=== PATIENT | female | born 1995 | race Caucasian/White ===

== ENCOUNTER 2022-06-05 07:02 | Emergency (ER) | payer MEDICAID, SELFPAY ==
[2022-06-05 07:09] VITALS: BP 146/89; PULSE 91; RESP 18; TEMP 37; O2SAT 96; BMI 49.0
--- NOTE | 2022-06-05 07:18 | CRLHL7_ITS ---
For Patients: As a result of the Century Cures Act, medical imaging exams and procedure reports are released immediately into your electronic medical record. You may view this report before your referring provider. If you have questions, please contact your health care provider. Indication: Right foot pain. Technique: Right foot 2 views. Comparison: None. Findings: No acute fracture or dislocation. Joint spaces are preserved. Bipartite medial sesamoid bone. Soft tissues are unremarkable. Impression: No acute findings. Dictated by Antonia Cruz MD @ 06/05/2022 8:05:13 AM (Electronically Signed)
--- NOTE | 2022-06-05 07:18 | CRLHL7_ITS ---
For Patients: As a result of the Century Cures Act, medical imaging exams and procedure reports are released immediately into your electronic medical record. You may view this report before your referring provider. If you have questions, please contact your health care provider. Indication: Right foot and ankle pain. Technique: Right ankle 2 views. Comparison: None. Findings: No acute fracture or dislocation. The talar dome appears intact. No ankle joint effusion. Soft tissues are unremarkable. Impression: No acute findings. Dictated by Antonia Cruz MD @ 06/05/2022 8:06:52 AM (Electronically Signed)
--- NOTE | 2022-06-05 07:23 | ED.LOWEXIN ---
HPI - Extremity Injury (Lower) General Time Seen by Provider: 07:20 Date Seen: 06/05/22 Chief Complaint: Extremity Pain/Injury, Lower Stated Complaint: Right ankle pain Time Seen by Provider: 06/05/22 07:09 Source: patient and RN notes reviewed Mode of arrival: ambulatory Limitations: no limitations History of Present Illness HPI Narrative: The patient is a very pleasant 27-year-old female denying who comes to the emergency room with complaints of right ankle pain. Patient notes that she was playing volleyball last night does not remember the exact moment in which she hurt her ankle. 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 She shows the pain to be in the medial aspect of her ankle and over the medial aspect of her upper foot. She has not noticed any bruising. She has not had pain in this area before. MD complaint: ankle injury and foot injury Onset (ago): hour(s) Related Data Home Medications Medication Instructions Recorded Confirmed No Known Home Medications 06/05/22 06/05/22 Allergies Allergy/AdvReac Type Severity Reaction Status Date / Time azithromycin [From Zithromax] Allergy Severe Hives Verified 06/05/22 07:13 bacitracin Allergy Intermediate hives Verified 06/05/22 07:13 [From Neosporin ([id number])] neomycin Allergy Intermediate hives Verified 06/05/22 07:13 [From Neosporin (aky-ndt-gqwel)] polymyxin B Allergy Intermediate hives Verified 06/05/22 07:13 [From Neosporin (ucd-pkz-bvfuo)] cephalexin [From Keflex] AdvReac Intermediate Rash Verified 06/05/22 07:13 codeine AdvReac Intermediate Rash Verified 06/05/22 07:12 Review of Systems Narrative: Patient denies any other injuries, numbness or tingling, easily broken bones. [facility] Medical History (Updated 06/05/22 @ 07:51 by Frannie eSrna MD) Endometriosis PCOS (polycystic ovarian syndrome) Social History Smoking Status: Current some day smoker What tobacco products do you use: cigarettes Do you use any of these nicotine containing products: None Second hand tobacco smoke exposure: No How often do you have a drink containing alcohol: never How often do you have six or more drinks on one occasion: Never AUDIT-C Alcohol total score: 0 Non-prescribed substance use: denies use service: No Exam Narrative: Exam Narrative: Past medical history: Patient states she is healthy Family history: Patient states her dad has had stents placed and is a diabetic Social history: Patient admits to smoking socially. Alcohol use is none she. Patient states she quit 4 years ago. 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. Const: Vital Signs, click to edit/add: Vital Signs - 24 hr 06/05/22 07:09 Temperature 98.6 F Pulse Rate [Right Pulse Oximeter] 91 Respiratory Rate 18 Blood Pressure [Ri ght Upper Arm] 146/89 H Pulse Oximetry 96 Documenting provider has reviewed patient's vital signs: yes Common normals: no apparent distress and oriented x3 Extremity: Other: Examination of the right foot shows noted discoloration. Patient has tenderness over the navicular and 1st metatarsal on the medial aspect. Patient also has lesser intense discomfort with palpation over the inferior aspect of the medial malleolus. Neuro: Common normals: oriented x3 Course Course Hospital Course: Differential diagnosis does include fracture, stress fracture, ligamental inflammation. X-ray of the foot and of the ankle currently being ordered. Vital Signs Vital signs: Initial Vital Signs Temperature 98.6 F 06/05/22 07:09 Temperature Source Tympanic 06/05/22 07:09 Pulse Rate 91 06/05/22 07:09 Respiratory Rate 18 06/05/22 07:09 Blood Pressure 146/89 H 06/05/22 07:09 Blood Pressure Mean 108 06/05/22 07:09 Blood Pressure Position Sitting 06/05/22 07:09 Pulse Oximetry 96 06/05/22 07:09 Vital Signs Temperature 98.6 F 06/05/22 07:09 Pulse Rate 91 06/05/22 07:09 Respiratory Rate 18 06/05/22 07:09 Blood Pressure 146/89 H 06/05/22 07:09 Pulse Oximetry 96 06/05/22 07:09 Temperature 98.6 F 06/05/22 07:09 Pulse Rate 91 06/05/22 07:09 Respiratory Rate 18 06/05/22 07:09 Blood Pressure 146/89 H 06/05/22 07:09 Pulse Oximetry 96 06/05/22 07:09 MDM - Extremity Injury (Lower) MDM Narrative Medical decision making narrative: 1. Right ankle strain-no evidence of fracture. At this time allow patient to today she return. Will wrap her ankle and foot an Chapo wrap also provide her stirrup. If she has not improvement she will need to be seen by Orthopedics. I would recommend icing at least a few times daily. Ibuprofen or Tylenol may be used for discomfort. 2. Disposition-home. Imaging Data ankle and foot xray: Attestation: I have reviewed the pertinent imaging results. My impression: No evidence of fracture. Radiologist's impression: No evidence of fracture or acute injury. Discharge Plan Discharge Clinical Impression: Ankle sprain and strain Patient Disposition: Home, Self-Care Condition: Improved Additional Instructions: Chapo wrap or splint as needed. Ice to area few times a day. Wear good supportive shoes. Follow up with Orthopedics or your primary clinic if not improving. Ibuprofen or Tylenol may be used for pain. Prescriptions: No Action No Known Home Medications 0RF Stand Alone Forms: [employer] Info Instructions
--- NOTE | 2022-06-05 08:24 | ED.NURSE ---
Patient's right ankle wrapped in LAURA wrap and gelsplint brace. Patient tolerating well. Understands can ice with brace, continue to elevate and use tylenol or ibuprofen as needed.
== END 2022-06-05 08:24 | disposition home or self-care (01) ==
PROVIDERS: Emergency Provider Family Medicine
DX: S93.401A Sprain of unspecified ligament of right ankle, initial encounter (principal)
CPT/HCPCS: 73600; 73620; 99282; 99283

== ENCOUNTER 2023-02-06 18:47 | Emergency (ER) | payer MEDICAID, SELFPAY ==
[2023-02-06 18:51] VITALS: BP 171/110; PULSE 98; RESP 20; TEMP 36.5; O2SAT 98; BMI 48.7
--- NOTE | 2023-02-06 19:42 | ED.UPPEXIN ---
HPI - Extremity Injury (Upper) General Chief Complaint: Extremity Pain/Injury, Upper Stated Complaint: L Shoulder Pain Time Seen by Provider: 02/06/23 19:02 History of Present Illness HPI narrative: This 27-year-old female comes in with left shoulder pain from an injury that occurred about 3 days ago. She states that she slipped getting out of the shower and fell forward onto her art stretched hands. She has developed more severe shoulder pain along these few days. She did present to [facility] facility for evaluation of this injury. An x-ray of her left shoulder was done along with other labs and imaging. These returned with normal findings. She states she received a intramuscular injection of Toradol and a prescription for a muscle relaxant. She reports that her left shoulder pain is become decidedly worse since then such that she is not able to sleep at night. She has decreased range of motion due to pain but there is no sign of deformity or significant swelling. Related Data Home Medications Medication Instructions Recorded Confirmed No Known Home Medications 06/05/22 06/05/22 Allergies Allergy/AdvReac Type Severity Reaction Status Date / Time azithromycin [From Zithromax] Allergy Severe Hives Verified 02/06/23 18:54 bacitracin Allergy Intermediate hives Verified 02/06/23 18:54 [From Neosporin ([id number]-jmnji)] neomycin Allergy Intermediate hives Verified 02/06/23 18:54 [From Neosporin (lld-tdu-lletf)] polymyxin B Allergy Intermediate hives Verified 02/06/23 18:54 [From Neosporin (oso-xwv-lhkfo)] cephalexin [From Keflex] AdvReac Intermediate Rash Verified 02/06/23 18:54 codeine AdvReac Intermediate Rash Verified 02/06/23 18:54 Review of Systems Status of ROS: Reports: 10 or more systems reviewed and unremarkable except as noted in History and below Narrative: Constitutional: No fevers, no weight gain or loss. Eyes: No discharge. No vision changes. HENT: No congestion, no sore throat, no ear pain. Cardiovascular: No chest pain, no palpitations. Respiratory: No shortness of breath, no wheezes, no cough. Gastrointestinal: No abdominal pain, no vomiting, no diarrhea. Genitourinary: No dysuria, no hematuria. Musculoskeletal: Left shoulder pain due to an injury with associated decreased range of motion. Skin: No rashes, no pruritis. Neurological: No dizziness, weakness, sensory change, speech change. Endo/Heme/Allergies: No bruising or bleeding. No polydipsia. Pysch: no suicidality, no anxiety, no insomnia. All other systems reviewed and are negative. [facility] Medical History (Updated 02/06/23 @ 19:48 by Amari Young MD) Endometriosis PCOS (polycystic ovarian syndrome) Social History Smoking Status: Current some day smoker What tobacco products do you use: cigarettes Do you use any of these nicotine containing products: None Second hand tobacco smoke exposure: No How often do you have a drink containing alcohol: never How often do you have six or more drinks on one occasion: Never AUDIT-C Alcohol total score: 0 Non-prescribed substance use: denies use service: No Exam Narrative: Exam Narrative: Constitutional: Well-developed, well-nourished, no acute distress. HEENT: Normocephalic, atraumatic. Neck: Normal range of motion. Nontender. Supple. Heart: Regular. No murmurs. Normal rate. Intact distal pulses. Lungs: Clear to auscultation. No chest discomfort. No wheezes, rhonchi, or rales. Abdomen: Normal bowel sounds. Nontender. No rebound tenderness. Genitalia: Deferred. Back: No midline tenderness. Normal range of motion. Extremities: This patient has diffuse pain in her left shoulder. There is no sign of swelling or deformity. She does not care to do any kind of range of motion because of pain. It is difficult to do a good shoulder exam because of this. Skin: Intact. No rash. Warm. No erythema or pallor. Neurologic: No altered sensation. No weakness. Alert and oriented. Psychiatric: No suicidality. No anxiety or depression. No insomnia. Nursing notes and vitals signs are reviewed. Const: Vital Signs, click to edit/add: Vital Signs - 24 hr 02/06/23 18:51 Temperature 97.7 F Pulse Rate [Right Pulse Oximeter] 98 Respiratory Rate 20 Blood Pressure [Ri ght Upper Arm] 171/110 H Pulse Oximetry 98 Oxygen Delivery Me thod Room Air Course Vital Signs Vital signs: Initial Vital Signs Temperature 97.7 F 02/06/23 18:51 Temperature Source Temporal Artery Scan 02/06/23 18:51 Pulse Rate 98 02/06/23 18:51 Pulse Rhythm 02/06/23 18:51 Pulse Strength 3+ Normal 02/06/23 18:51 Respiratory Rate 20 02/06/23 18:51 Blood Pressure 171/110 H 02/06/23 18:51 Blood Pressure Mean 130 02/06/23 18:51 Blood Pressure Position Sitting 02/06/23 18:51 Pulse Oximetry 98 02/06/23 18:51 Oxygen Delivery Method 02/06/23 18:51 Vital Signs Temperature 97.7 F 02/06/23 18:51 Pulse Rate 98 02/06/23 18:51 Respiratory Rate 20 02/06/23 18:51 Blood Pressure 171/110 H 02/06/23 18:51 Pulse Oximetry 98 02/06/23 18:51 Oxygen Delivery Method 02/06/23 18:51 Temperature 97.7 F 02/06/23 18:51 Pulse Rate 98 02/06/23 18:51 Respiratory Rate 20 02/06/23 18:51 Blood Pressure 171/110 H 02/06/23 18:51 Pulse Oximetry 98 02/06/23 18:51 Oxygen Delivery Method 02/06/23 18:51 MDM - Extremity Injury (Upper) MDM Narrative Medical decision making narrative: This patient comes in with an injury to her left shoulder. She states that she did not fall onto her shoulder but rather injured at by jamming her shoulder when she fell on her outstretched hands. This mechanism could be such that would cause injury to her rotator cuff however she did not have much pain initially but it has worsened over time. It seems more likely this is muscle strain. She did have x-ray and workup done a couple days ago at another facility. It was discussed to repeat any such studies today but did not seem necessary in a process of shared decision making. The patient did receive a sling. She does have a follow-up appointment with her primary physician in 4 days. I did prescribe tablets of Toradol and [place] and stated that we would not repeat these pain medicines out of the ER. She should follow-up with orthopedic clinic if not improving. Discharge Plan Discharge Clinical Impression: Injury of shoulder, left Patient Disposition: Home, Self-Care Condition: Unchanged Additional Instructions: Wear sling as needed. Increase activity as tolerated. Use medications as needed and directed. Follow up with primary physician as scheduled or with orthopedic clinic if not improving or worsening. Prescriptions: No Action No Known Home Medications Follow Up/Referrals: Provider,Not a Local [Primary Care Provider] - Stand Alone Forms: [employer] Info Instructions
== END 2023-02-06 20:12 | disposition home or self-care (01) ==
LOC: ED 19:57
PROVIDERS: Emergency Provider Emergency Medicine Emergency Medical Services
DX: M25.512 Pain in left shoulder (principal)
CPT/HCPCS: 99283; 99284

== ENCOUNTER 2023-10-27 11:57 | Emergency (ER) | payer MEDICAID, SELFPAY ==
[2023-10-27 12:17] VITALS: BP 140/84; PULSE 111; RESP 18; TEMP 36.9; O2SAT 99; BMI 48.7
--- NOTE | 2023-10-27 13:57 | ED.GENADULT ---
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 The patient reports she grabbed pain in to lift it and burned the lateral aspect of her mid phalanx on the index finger and a little bit over her medial aspect of her distal thumb. There is no redness or erythema there is no blistering. Work Comp said he can get it checked ?if you want?. Patient has reported this to work comp. She is using the hand fully and has no marked discomfort. Related Data Home Medications Medication Instructions Recorded Confirmed No Known Home Medications 06/05/22 06/05/22 Allergies Allergy/AdvReac Type Severity Reaction Status Date / Time azithromycin [From Zithromax] Allergy Severe Hives Verified 02/06/23 18:54 bacitracin Allergy Intermediate hives Verified 02/06/23 18:54 [From Neosporin (dwa-hpr-asttv)] neomycin Allergy Intermediate hives Verified 02/06/23 18:54 [From Neosporin (kjy-sbr-wwnbl)] polymyxin B Allergy Intermediate hives Verified 02/06/23 18:54 [From Neosporin (dko-hml-tqvmq)] cephalexin [From Keflex] AdvReac Intermediate Rash Verified 02/06/23 18:54 codeine AdvReac Intermediate Rash Verified 02/06/23 18:54 Review of Systems Status of ROS: Reports: 6 or more systems reviewed and unremarkable except as noted in History and below [facility] Medical History PCOS (polycystic ovarian syndrome) ?E28.2 - Polycystic ovarian syndrome (ICD-10) Endometriosis ?N80.9 - Endometriosis, unspecified (ICD-10) Social History Smoking Status: Current some day smoker What tobacco products do you use: cigarettes Do you use any of these nicotine containing products: None Second hand tobacco smoke exposure: No How often do you have a drink containing alcohol: never How often do you have six or more drinks on one occasion: Never AUDIT-C Alcohol total score: 0 Non-prescribed substance use: denies use service: No Exam Narrative: Exam Narrative: Objective: Vital signs unremarkable Her right hand index finger of the lateral aspect has a little bit of firmness but there is no redness erythema no blistering same with the distal medial thumb varies, rare small area that is a little firm but there is no blistering no redness. She is sensate in both spots. Const: Vital Signs, click to edit/add: Vital Signs - 24 hr 10/27/23 12:17 Temperature 98.4 F Pulse Rate [Right Pulse Oximeter] 111 H Respiratory Rate 18 Blood Pressure [Ri ght Upper Arm] 140/84 H Pulse Oximetry 99 Oxygen Delivery Me thod Room Air Course Vital Signs Vital signs: Initial Vital Signs Temperature 98.4 F 10/27/23 12:17 Temperature Source Temporal Artery Scan 10/27/23 12:17 Pulse Rate 111 H 10/27/23 12:17 Respiratory Rate 18 10/27/23 12:17 Blood Pressure 140/84 H 10/27/23 12:17 Blood Pressure Mean 102 10/27/23 12:17 Blood Pressure Position Sitting 10/27/23 12:17 Pulse Oximetry 99 10/27/23 12:17 Oxygen Delivery Method Room Air 10/27/23 12:17 Vital Signs Temperature 98.4 F 10/27/23 12:17 Pulse Rate 111 H 10/27/23 12:17 Respiratory Rate 18 10/27/23 12:17 Blood Pressure 140/84 H 10/27/23 12:17 Pulse Oximetry 99 10/27/23 12:17 Oxygen Delivery Method Room Air 10/27/23 12:17 Temperature 98.4 F 10/27/23 12:17 Pulse Rate 111 H 10/27/23 12:17 Respiratory Rate 18 10/27/23 12:17 Blood Pressure 140/84 H 10/27/23 12:17 Pulse Oximetry 99 10/27/23 12:17 Oxygen Delivery Method Room Air 10/27/23 12:17 Medical Decision Making MDM Narrative Medical decision making narrative: Minor burn to the index and thumb probably 1st degree. At this point would recommend just moisturizing lotion topically there is no open wounds no blistering watch for this. She is up-to-date on immunizations by her report, and would recommend moisturizing lotion and she can return to work and do normal activities. Discharge Plan Discharge Clinical Impression: 1st deg burn finger Patient Disposition: Home, Self-Care Condition: Stable Additional Instructions: Moisturizing lotion to the hand, watch for blistering or any redness, at this point looks like a first-degree burn and he should do very well, activities as tolerated. Your reported your up-to-date on her tetanus. Activity Level: No Restrictions Discharge Diet: Regular Prescriptions: No Action No Known Home Medications Follow Up/Referrals: Provider,Not a Local [Primary Care Provider] - Stand Alone Forms: [employer] Info Instructions
== END 2023-10-27 14:03 | disposition home or self-care (01) ==
PROVIDERS: Emergency Provider Family Medicine
DX: T23.141A Burn of first degree of multiple right fingers (nail), including thumb, initial encounter (principal)
CPT/HCPCS: 99283

== ENCOUNTER 2023-11-21 03:37 | Emergency (ER) | payer MEDICAID, SELFPAY ==
[2023-11-21 03:43] VITALS: BP 140/92; PULSE 98; RESP 18; TEMP 36.6; O2SAT 98
--- NOTE | 2023-11-21 03:59 | ED.GENADULT ---
HPI - General Adult General Time Seen by Provider: 03:59 Date Seen: 11/21/23 Chief complaint: Ear/Nose/Throat Problem Stated complaint: ear pain Source: patient, RN notes reviewed and old records reviewed Mode of arrival: ambulatory Limitations: no limitations History of Present Illness HPI narrative: 28-year-old female who comes in today with bilateral ear pain for the last 2 hours. This is also has nasal congestion, cough, and sore throat. Has not taken anything for this. Related Data Previous Rx's Medication Instructions Recorded diphenhydramine HCl 25 mg capsule 25 mg PO Q6H PRN #8 caps 11/21/23 (Benadryl) fluticasone propionate 50 2 spray intranasal DAILY #16 grams 11/21/23 mcg/actuation nasal spray,suspension (Flonase Allergy Relief) Allergies Allergy/AdvReac Type Severity Reaction Status Date / Time azithromycin [From Zithromax] Allergy Severe Hives Verified 02/06/23 18:54 bacitracin Allergy Intermediate hives Verified 02/06/23 18:54 [From Neosporin (iox-ipa-erunt)] neomycin Allergy Intermediate hives Verified 02/06/23 18:54 [From Neosporin (hoc-itv-sxolt)] polymyxin B Allergy Intermediate hives Verified 02/06/23 18:54 [From Neosporin (uya-ewr-zorhw)] cephalexin [From Keflex] AdvReac Intermediate Rash Verified 02/06/23 18:54 codeine AdvReac Intermediate Rash Verified 02/06/23 18:54 [facility] History PCOS (polycystic ovarian syndrome) ?E28.2 - Polycystic ovarian syndrome (ICD-10) Endometriosis ?N80.9 - Endometriosis, unspecified (ICD-10) Social History Smoking Status: Current some day smoker What tobacco products do you use: cigarettes Do you use any of these nicotine containing products: None Second hand tobacco smoke exposure: No How often do you have a drink containing alcohol: never How often do you have six or more drinks on one occasion: Never AUDIT-C Alcohol total score: 0 Non-prescribed substance use: denies use service: No Exam Narrative: Exam Narrative: General: well nourished , NAD Head: Atraumatic and normocephalic ENT: External ears and external nose are normal. Bilateral tympanic membranes pearly taylor and intact Eyes: Conjunctiva clear, pupils are equal reactive, external ocular motions are intact Neck: Full spontaneous range of motion of the neck Lungs: No respiratory distress Musculoskeletal: No tenderness or deformity Neurologic: No gross focal neurologic deficits Skin: No rashes Psych: Mood and affect are appropriate Const: Vital Signs, click to edit/add: Vital Signs - 24 hr 11/21/23 03:43 Temperature 97.8 F Pulse Rate [Left P ulse Oximeter] 98 Respiratory Rate 18 Blood Pressure [Ri ght Upper Arm] 140/92 H Pulse Oximetry 98 Oxygen Delivery Me thod Room Air Course Course ED Course: Patient seen examined, prior records reviewed. Patient presents today with bilateral ear pain for 2 hours. Has had some upper respiratory symptoms. On exam, tympanic membranes are pearly taylor without erythema or bulging to suggest infection. Possible early otitis with effusion, patient will be started on steroid in decongestants. No indication for antibiotics at this time Toradol IM given prior to discharge Vital Signs Vital signs: Initial Vital Signs Temperature 97.8 F 11/21/23 03:43 Temperature Source Temporal Artery Scan 11/21/23 03:43 Pulse Rate 98 11/21/23 03:43 Pulse Rhythm Regular 11/21/23 03:43 Respiratory Rate 18 11/21/23 03:43 Blood Pressure 140/92 H 11/21/23 03:43 Blood Pressure Mean 108 H 11/21/23 03:43 Blood Pressure Position Sitting 11/21/23 03:43 Pulse Oximetry 98 11/21/23 03:43 Oxygen Delivery Method Room Air 11/21/23 03:43 Vital Signs Temperature 97.8 F 11/21/23 03:43 Pulse Rate 98 11/21/23 03:43 Respiratory Rate 18 11/21/23 03:43 Blood Pressure 140/92 H 11/21/23 03:43 Pulse Oximetry 98 11/21/23 03:43 Oxygen Delivery Method Room Air 11/21/23 03:43 Temperature 97.8 F 11/21/23 03:43 Pulse Rate 98 11/21/23 03:43 Respiratory Rate 18 11/21/23 03:43 Blood Pressure 140/92 H 11/21/23 03:43 Pulse Oximetry 98 11/21/23 03:43 Oxygen Delivery Method Room Air 11/21/23 03:43 Discharge Plan Discharge Clinical Impression: Acute otalgia Patient Disposition: Home, Self-Care Condition: Stable Instructions: Earache (ED) Additional Instructions: Take Tylenol and ibuprofen as needed for pain Take prednisone decongestant and Flonase as prescribed Activity Level: Activity as Tolerated Discharge Diet: Regular Prescriptions: New diphenhydramine HCl [Benadryl] 25 mg capsule 25 mg PO Q6H PRNQty: 8 0RF fluticasone propionate [Flonase Allergy Relief] 50 mcg/actuation spray,suspension 2 spray intranasal DAILY Qty: 16 0RF Rx Instructions: administer into each nostril Follow Up/Referrals: Provider,Not a Local [Primary Care Provider] - Stand Alone Forms: [employer] Info Instructions
[2023-11-21] MEDS: KETOROLAC 30 MG/ML inj IM (04:05)
== END 2023-11-21 04:14 | disposition home or self-care (01) ==
LOC: ED 04:01
PROVIDERS: Emergency Provider Family Medicine; PCP Student in an Organized Health Care Education/Training Program
DX: H92.03 Otalgia, bilateral (principal)
CPT/HCPCS: 96372; 99283; J1885

== ENCOUNTER 2024-12-16 21:36 | Emergency (ER) | payer MEDICAID, SELFPAY ==
--- OUTSIDE RECORDS SUMMARY | 2024-12-16 21:38 | XMS_ITS | Clinical Summary ---
Author Organization [facility] Address [place], [place] [address] Care Team Providers Care Transit Bus Driver Name Role Phone Mauro Kathy IBARRA Primary Care Provider [phone] Allergies Active Allergy Reactions Criticality Noted Date Comments Codeine Rash 08/02/2017 Cephalexin Hives 08/23/2017 Soap Rash,Itching 01/20/2016 Extra laundry soap Lkemg-Nekks-Pouovbk-Pramoxin e Hives 03/05/2015 Azithromycin Hives 06/15/2016 Medications cyclobenzaprine (FLEXERIL) 10 mg tabletIndications: Strain of right rotator cuff capsule, subsequent encounter TAKE 1/2 TO 1 TABLET BY MOUTH AT BEDTIME FOR MUSCLE SPASMS 30 Tablet 11 08/24/20 22 Active omeprazole (PRILOSEC) 40 mg Delayed-Release capsuleIndications :Gastroesophageal reflux disease, unspecified whether esophagitis present,Sore throat Take 1 Capsule (40 mg) by mouth once daily. 30 Capsule 11 08/20/20 23 Active semaglutide (Wegovy) 0.25 mg/0.5 mL penIndications:Mor bid obesity with BMI of 50.0-59.9, adult (HC),Prediabetes Inject 0.25 mg subcutaneous once weekly. 2 mL 1 12/29/19 24 Active ciprofloxacin-dexA METHasone (CIPRODEX) otic suspensionIndicati ons:Abrasion of left ear canal, initial encounter Place 4 Drops into left ear two times daily for 5 days. 7.5 mL 12/12/19 25 025 Active oxyCODONE-acetamin ophen (PERCOCET) 5-325 mg per tabletIndications: Aftercare following surgery Take 1-2 Tablets by mouth every 6 hours if needed for Pain. Max acetaminophen dose: 4000mg in 24 hrs. 15 Tablet 5 1:00 PM PULMONARY SPECIALIST 12/15/19 25 Active inhalational spacing deviceIndications: Acute cough For home use. 1 Each 10/06/20 23 025 Disconti nued(*Pa tient states no longer taking) benzonatate (TESSALON) 100 mg capsuleIndications :Cough, unspecified type Take 1 Capsule (100 mg) by mouth 3 times daily if needed for Cough. 21 Capsule 05/31/20 24 024 Disconti nued(*Me d complete /Regimen complete /Level of care change) albuterol HFA (PRO-AIR; VENTOLIN; PROVENTIL) 90 mcg/actuation inhalerIndications :Cough, unspecified type Inhale 1-2 Puffs by mouth every 4 hours if needed for Shortness Of Breath or Wheezing. 1 Each 05/31/20 24 025 Disconti nued(*Pa tient states no longer taking) rx diazePAM (VALIUM) 5 mg tablet (ED DC MED)Indications:No cturnal muscle cramps Take 1 Tablet (5 mg) by mouth every 6 hours if needed (muscle spasm). 4 Tablet 06/07/20 24 024 Disconti nued(*Me d complete /Regimen complete /Level of care change) rx cyclobenzaprine (FLEXERIL) 10 mg tablet (ED DC MED)Indications:[place] pain of left shoulder Take 1 Tablet (10 mg) by mouth 3 times daily if needed (muscle spasm). 4 Tablet 06/19/20 24 025 Disconti nued(*Pa tient states no longer taking) norethindrone-ethi nyl estradiol (OVCON-35) 0.4-35 mg-mcg tabletIndications: Menorrhagia with regular cycle Take one tablet 3 times per day for 7 days 28 Tablet 08/03/20 24 024 Disconti nued(*Me d complete /Regimen complete /Level of care change) ondansetron (ZOFRAN ODT) 4 mg disintegrating tabletIndications: Menorrhagia with regular cycle Place 1 Tablet (4 mg) on the tongue every 8 hours if needed for Nausea/Vomiting. 10 Tablet 08/03/20 24 024 Disconti nued(*Me d complete /Regimen complete /Level of care change) Active Problems Problem Noted Date Diagnosed Date Borderline personality disorder 03/29/2024 Generalized anxiety disorder 03/29/2024 Overview (2024): 03/29/24 Patient presents today for discussion regarding anxiety symptoms. The patient states that she has a longstanding history of anxiety and was diagnosed with borderline personality disorder when she was approximately age 22. She states that her anxiety has worsened over the last several months. She is not currently on any treatment. She states that she has completed DBT for borderline personality disorder in the past, as well as group therapy. The patient describes constant worry and feeling ?stressed out? of the time. She is often restless, irritable, and easily annoyed. Stress present both at work and home. She states that she has a stepchild with Asperger's, which has been difficult to manage. 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 She denies chest pain, but has occasional palpitations when her anxiety is high. She has had 1-2 panic attacks over the last 4 months. She states that she will be sitting in her car and she can not bring herself to get out. Denies current suicidal ideation or plan. The patient has taken Prozac in the past, but had increased suicidal ideation with the medication. She has also taken Zoloft when she was approximately 15 years old, does not remember if it was helpful or not. Last Assessment & Plan: 03/29/24 Discussed options for treatment of anxiety in the setting of borderline personality disorder. The patient has trialed both sertraline and fluoxetine in the past. We will start escitalopram 10 mg daily. Side effects of medication discussed. Patient interested in starting therapy again. She is not interested in DBT at this time, but would like to find a local therapy provider that she can see long- term. Sent list of therapy providers within the community with recent openings. Follow up office visit in 4 weeks. Prediabetes 12/29/2023 Morbid obesity with BMI of 50.0-59.9, adult 05/2024 Cyst of left ovary 09/13/2023 Overview (11/07/2023): 10/12/2022 during menses: FINDINGS: Uterus: 3.3 x 5.7 x 7.9 cm. Nabothian cysts. Myometrium: Normal. Endometrium: Normal. Thickness: 4 mm Right ovary: Not visualized. Likely obscured by bowel gas. Left ovary: 2.3 x 2.5 x 1.8 cm hypoechoic simple to minimally complex avascular mass. This may contain a few echoes, however some of which may be artifactual. No suspicious mural nodularity or vascularity. Ovarian volume: 13 ml. Intraperitoneal Fluid: None. Transvaginal exam performed to better visualize the adnexa. IMPRESSION: 1. Uterus and endometrial stripe are unremarkable. 2. Right ovary is not visualized. 3. Probable simple to minimally complex left ovarian 2.5 cm cyst. 08/05/2023 [place] [facility]: 1. The uterus is normal in appearance. 2. The right ovary was noted to have a simple 1.7 x 1.3 x 1.1 cm cyst. 3. The left ovary was noted to have complex mass measuring 3.6 x 3.0 x 2.5 cm size. There are 2 smaller simple cysts in the left ovary as well. Will recheck during next menstrual flow. Consider MRI further evaluation needed beyond that. 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 Chronic tonsillitis Post-tonsillectomy hemorrhage Resolved Problems Problem Noted Date Diagnosed Date Resolved Date No significant past medical history 07/29/2011 01/16/2016 Encounters Date Type Department Care Team Description 12/15/2024 9:24 AM PULMONARY SPECIALIST - 12/15/2024 11:20 AM PULMONARY SPECIALIST Surgery [facility] [address] [place] [address] Kyle Hammond MD RIGHT OPEN CARPAL TUNNEL RELEASE 12/15/2024 9:15 AM PULMONARY SPECIALIST Anesthesia Event [facility] [address] [place] [address] Yusra Tony MD 12/15/2024 6:50 AM PULMONARY SPECIALIST - 12/15/2024 1:15 PM PULMONARY SPECIALIST Hospital Encounter [facility] [address] [place] [address] Kyle Hammond MD Right carpal tunnel syndrome (Primary Dx); Cubital tunnel syndrome on right; Aftercare following surgery Discharge Disposition: Home Self Care 12/15/2024 Travel 12/12/2024 7:58 PM PULMONARY SPECIALIST - 12/12/2024 8:27 PM PULMONARY SPECIALIST Emergency [facility] [address] [place] [address] Willow Lange PA Abrasion of left ear canal, initial encounter (Primary Dx) Discharge Disposition: Home Self Care 12/12/2024 Travel 12/01/20[address] Orders [address] [facility] [place] [address] [facility] [address] [place] [address] Kyle Hammond MD <No scans attached> 11/20/2024 1:30 PM PULMONARY SPECIALIST Office Visit [facility] [address] [place] [address] Earlene Rodriguez MD Pre-Op Exam 11/19/2024 Travel 11/16/2024 Orders [address] [facility] [place] [address] [place] [address] Kyle Hammond MD <No scans attached> 10/29/2024 Travel 10/04/2024 11:00 AM PULMONARY SPECIALIST Office Visit [facility] [address] [place] [address] Kyle Hammond MD Recheck (Right carpal tunnel syndrome) 10/04/2024 Travel 09/18/2024 1:12 AM CDT - 09/18/2024 1:[address] [facility] [address] [place] [address] Miller Arellano MD Left ear pain (Primary Dx) Discharge Disposition: Home Self Care 09/18/2024 Travel from Last 3 Months Immunizations Name Administration Dates Next Due COVID-19 vaccine (Moderna 100mcg/0.5mL) PF MDV 01/08/2021,12/11/2020 DTP 1996,1996,1996 DTaP 03/04/2001,08/06/1997 HIB PRP-OMP (PedvaxHIB) 08/06/1997,11/03,1996,07/04 Hepatitis B (Peds) 01/30/1997,1996, 996 Hepatitis B, Unspecified 05/07/1997,01/20,1996,05/17 Human Papilloma Virus Vaccine 08/05/2010, 008,10/18/2007 Inactivated Polio Vaccine 03/04/2001 Influenza Virus, Unspecified 09/27/2019 Influenza, IIV4 08/20/2023,09/27/2019 Influenza, Inactivated AIIV4 (Age 65+ Years) Preserv Free 09/18/2024 MENINGOCOCCAL VACCINE 2 VIAL 2MO-55YO (MENVEO) 11/18/2018 MMR 03/04/2001,08/06/1997 Oral Polio Vaccine 1996,1996, 996 Pneumococcal Conj 20-valent (Prevnar 20) 08/20/2023 Polio Virus, Unspecified 1996,1996,0 1996 Tdap 11/18/2018,10/18/2007 Tuberculin (PPD) 05/07/1997 Varicella Vaccine 12/06/2007,05/07/1997 Family History Medical History Relation Name Comments Diabetes Father Ovarian cysts Maternal Aunt 1 Uterine cancer Maternal Aunt 2 Cancer-ovarian Maternal Grandmother Cancer-breast Mother Ovarian cysts Mother Cancer-ovarian Paternal Grandmother Obesity Sister 2 Ramila Relation Name Status Comments Brother Alive Father Alive Maternal Aunt 1 Alive Maternal Aunt 2 Alive Maternal Grandmother Mother Alive Paternal Grandmother Sister 1 Joy Alive Sister 2 Ramila Alive Social History Tobacco Use Types Packs/Day Years Used Date Smoking Tobacco: Light Smoker Cigarettes 0.3 6 Started: 012; Last attempted to quit: 02/14/2018 Smokeless Tobacco: Never Tobacco Cessation:Ready to Q uit: Yes; Counseling Given: No Comments:08/02/19 2-3 cigarettes per day 07/20/20 not smoking - social Alcohol Use Standard Drinks/Week Comments Not Currently 0 (1 standard drink = 0.6 oz pur e alcohol) PHQ-2 Answer Date Recorded PHQ-2 TOTAL SCORE 0 01/26/2022 Social Connections Answer Date Recorded Do you often feel lonely or isolated from those around you? 0 02/21/2024 Financial Resource Strain Answer Date R ecorded Difficulty of Paying Living Expenses 3 02/21/2024 Difficulty of Paying Living Expenses Not on file 02/21/2024 Food Insecurity Answer Date Recorded Do you worry your food will run out before you are able to buy more? 1 02/21/2024 Transportation Needs Answer Date Record ed Does lack of transportation keep you from medica l appointments? 1 02/21/2024 Does lack of transportation keep you from work, meetings or getting things that you need? 1 02/21/2024 Housing Stability Answer Date Recorded What is your housing situation today? 1 02/21/2024 Interpersonal Safety Answer Date Record ed Are you being hit, kicked, p ushed or yelled at (see row info)? No 12/12/2024 Interpersonal Safety Abuse 12 - 18 Not on file 12/12/2024 Interpersonal Safety Ambulatory Vulnerability No t on file 12/12/2024 Utilities Answer Date Recorded Do you have trouble paying f or utilities (for example, heat, electricity, water, phone)? 1 02/21/2024 Comments No Sex and Gender Information Value Date Recorded Sex Assigned at Not on file Legal Sex Female 5:23 AM PULMONARY SPECIALIST Gender Identity Not on file Sexual Orientation Not on file Obstetrics History Para Term AB IAB SAB Ectopic Multiple Livin g Live Births 8 0 0 0 8 0 0 0 0 0 0 Date Outcome GA Total Labor Labor/2nd/3rd Weight Sex Type Anes PTL Sana A1 A5 Name Clin AB AB AB AB AB AB AB AB Last Filed Vital Signs Vital Sign Reading Time Taken Comments Blood Pressure 134/86 12/15/2024 12:45 PM PULMONARY SPECIALIST Pulse 65 12/15/2024 12:45 PM PULMONARY SPECIALIST Temperature 36 C (96.8 F) 12/15/2024 12:15 PM PULMONARY SPECIALIST Respiratory Rate 16 12/15/2024 12:45 PM PULMONARY SPECIALIST Oxygen Saturation 95% 12/15/2024 12:45 PM PULMONARY SPECIALIST Inhaled Oxygen Concentration - - Weight 159.7 kg (352 lb) 12/15/2024 8:15 AM PULMONARY SPECIALIST Height 172.7 cm (5' 8) 12/15/2024 8:15 AM PULMONARY SPECIALIST Body Mass Index 53.52 12/15/2024 8:15 AM PULMONARY SPECIALIST Plan of Treatment Upcoming Encounters Date Type Department Care Team (Late st Contact Info) Description 12/18/2024 11:10 AM PULMONARY SPECIALIST Office Visit [facility] [address] [place] [address] Kathy Wade PA [address] [place] [address] 12/27/2024 11:30 AM PULMONARY SPECIALIST Office Visit [facility] [address] [facility] [address] [place] [address] Mona Francisco PA [address] [facility] [address] [place] [address] Health Maintenance Due Date Last Done Comments Depression screening for age 12+ 01/26/2023 01/26/2022, 12/24/2020, 12/23/2020, Additional history exists COVID-19 vaccine series ( season) 2024 01/08/2021, 12/11/2020 Influenza for age 9-49 07/23/2024 , 09/27/2019, 09/27/2019 Pap test for age 21-65 01/26/2025 01/26/2022, 2017 BMI (ht and wt on same day) for age 18+ 11/20/2025 11/20/2024, 12/14/2022, 11/26/2022, Additional history exists Tetanus booster 11/18/2028 11/18/2018, 10/18/2007 HIV for age 15-65 Completed 03/10/2017 Tdap Completed 11/18/2018, 10/18/2007 Hepatitis C screening for ag e 18-79 Completed 08/20/2023 Pneumococcal series for age 6-49 Completed 08/20/20 23 Procedures Procedure Name Priority Date/Time Associated Diagnosis Comments ENDOTRACHEAL TUBE Routine 12/15/2024 9:4 0 AM PULMONARY SPECIALIST ENDOTRACHEAL TUBE Routine 12/15/2024 9:4 0 AM PULMONARY SPECIALIST ENDOTRACHEAL TUBE Routine 12/15/2024 9:4 0 AM PULMONARY SPECIALIST URINE Preop 12/15/2024 7:53 AM PULMONARY SPECIALIST ANTI HCV Routine 08/20/2023 11:17 AM CDT Encounter for hepatitis C screening test for low risk patient SOAKER HELPER THIN PREP PAP SCREEN IMAGED Routine 01/26/2022 4:15 PM PULMONARY SPECIALIST Pap smear for cervical cancer screening ANTI HIV 1/2 Routine 03/10/2017 10:45 AM CDT STD exposure from Last 3 Months or Most Recently Relevant to Health Maintenance Results * HCHG TUBE PR1, HCHG INSTRUMENT DISP PR10, HCHG STYLET PR1 (12/15/2024 9:40 AM PULMONARY SPECIALIST) Narrative Ashutosh Flores CRNA - 12/15/2024 9:40 AM PULMONARY SPECIALIST Ashutosh Flores CRNA 12/15/2024 9:41 AM Procedure: ETT Patient location during procedure: OR ETT Properties Mask Ventilation: easy Final Technique: video laryngoscopy Type: straight Location: oral Cuffed: yes Tube Size: 7.0 mm Stylet: yes Laryngoscope Blade: Glidescope Blade Size: 3 Cormack-Lehane Grade View: 1 Insertion Attempts: 1 Placement Verification: auscultation, end tidal CO2 and symmetrical chest wall movement Assessment: pharynx clear, atraumatic and dentition unchanged Secured at: 23 Measured From: lips Bite Block: oral airway Difficulty: 0 (not difficult) Ashutoshshannon Flores LINOLEUM LAYER ANESTHESIA PX NOTE ORDERAB LES Final Result * Urine (12/15/2024 7:53 AM PULMONARY SPECIALIST) ,URIN E Negative Negative 12/15/2024 8:09 AM PULMONARY SPECIALIST [facility] Urine URINE SPECIMEN / Unknown Non-Blood / Unknown 12/15/2024 7:53 AM PULMONARY SPECIALIST 12/15/2024 8:04 AM PULMONARY SPECIALIST Mona IBARRA URINE Final Result Performing Organization Address [facility] Co de Phone Number [facility] [address] [place] [address], * ANTI HCV (08/20/2023 11:17 AM CDT) HEPATITIS C ANTIBODY Non-Reacti ve Non-React che 08/21/2023 6:05 AM CDT [facility] Comment:Please note, per www .CDC.gov: If a patient is known to be at high risk of HCV infection, or is symptomatic, and the physician's suspicion of HCV infection is high, HCV RNA testing is often employed and is of diagnostic value, even after an initial negative anti-HCV test result. Blood BLOOD SPECIMEN / Unknown Venipuncture / Unknown 08/20/2023 11:17 AM CDT 08/20/2023 11:18 AM CDT Kathy IBARRA SEND OUTS Final Res ult [facility] [address] [place] [address], [place] * SOAKER HELPER THIN PREP PAP SCREEN IMAGED (01/26/2022 4:15 PM PULMONARY SPECIALIST) Case Report Gynecologic Cytology Report Case: [id number] Authorizing Provider: Ji Persaud MD Collected: 01/26/2022 1615 Ordering Location: [facility] Received: 01/26/2022 1702 Clinic First Screen: Ale Lucas Specimen: SOAKER HELPER ThinPrep Vial Screening, Cervical 02/04/2022 8:43 AM CDT [facility] INTERPRETATION/ RESULT NEGATIVE FOR INTRAEPITHELIAL LESION OR MALIGNANCY (NIL) (none) 02/04/2022 8:43 AM CDT [facility] IMEN ADEQUACY Satisfactory for evaluation Endocervical component present 02/04/2022 8:43 AM CDT [facility] HPV REQUEST HPV if ASCUS 02/04/2022 8:43 AM CDT [email or web address] Date of LMP 01/13/2022 02/04/2022 8:43 AM CDT [facility] Last Pap Date 11/18/18 02/04/2022 8:43 AM CDT [facility] [employer] [facility] Last Pap Result NIL 8:43 AM CDT [facility] Abnormal Pap or [place] Bx in last 5 years No 02/04/2022 8:43 AM CDT [facility] [employer] [facility] Menstrual Status Regular Periods 02/04/2022 8:43 AM CDT [facility] [place] Bx Done Today No 02/04/2022 8:43 AM CDT [facility] [employer] [facility] Additional Information None given 02/04/2022 8:43 AM CDT [facility] [employer] [facility] Comment: Cytology is screened at [facility], Central Laboratory - [address], [place] [address] and [facility] Laboratory - [address] [place] [address], [place] [address] and [facility] - [address] [place] [address] Interpreted at [facility] [place] [address] Automated Review Successful 02/04/2022 8:43 AM CDT [facility] Comment:Specimen processed s uccessfully by automated guest specialist device, ThinPrep Imaging System, [employer] Note The pap test is a screening technique, not a diagnostic procedure. It is used primarily to screen for squamous cancers and precursor lesions. Published studies have shown that it is subject to both false negative and false positive results. The pap test should not be used as the sole means to diagnose or exclude pre-malignant and malignant lesions. 02/04/2022 8:43 AM CDT [facility] Other (Cervical) Non-Blood / Unknown 01/26/2022 4:15 PM PULMONARY SPECIALIST 01/26/2022 5:02 PM PULMONARY SPECIALIST Ji Persaud MD PATHOLOGY/CYTOLOGY Mitra l Result [facility] [address] [place] [address], * ANTI HIV 1/2 (03/10/2017 10:45 AM CDT) HIV-1/HIV-2 ANTIBODY Non-Reacti ve Non-Reacti ve 03/10/2017 8:46 PM CDT [facility] Blood BLOOD SPECIMEN / Unknown Venipuncture / Unknown 03/10/2017 10:45 AM CDT 03/10/2017 10:50 AM CDT Narrative [facility] - 03/10/2017 8:46 PM CDT HIV-1 p24 and HIV-1/HIV-2 Ab not detected Ji Persaud MD SEND OUTS Final R esult [facility] [address] [place] [address], from Last 3 Months or Most Recently Relevant to Health Maintenance Insurance [employer] CHOICE [facility] [employer] VEHICLE INS ELIANE ESPARZA [facility] [employer]viral [facility] [place] [id number] [address] [address] [place] [address] Advance Directives * Full Code (Latest Code Status on File) Date Activated Date Inactivated Comments 12/15/2024 7:52 AM 12/15/2024 5:11 PM Question Answer Comments Code Status Discussion: Reviewed Preferences * Full Code Date Activated Date Inactivated Comments 09/14/2019 1:09 PM 09/14/2019 6:50 PM Question Answer Comments Code Status Discussion: Per Existing Order * Full Code Date Activated Date Inactivated Comments 09/07/2019 7:03 AM 09/07/2019 3:44 PM Question Answer Comments Code Status Discussion: Discussed * Full Code Date Activated Date Inactivated Comments 09/14/2018 9:49 AM 09/14/2018 3:38 PM Question Answer Comments Code Status Discussion: Discussed Care Teams Transit Bus Driver Relationship Specialty Start Date End Date Kathy Wade [place] [address] PCP - General Physician Medical Cash Poster 06/22/23
--- OUTSIDE RECORDS SUMMARY | 2024-12-16 21:38 | XMS_ITS | Clinical Summary ---
Author Organization [facility] Address [address] [facility] [address] , [address] [place] [address] Phone Care Team Providers Care Pharmacy Services Representative Name Role Phone [facility] Unavailable Unava ilable Conditions or Problems Problem Name Problem Code Onset Date Status Entry Date Provider Comment Standard Description Annotate Ulnar neuropathy , right 854750392 (SNOMED CT) Active Cruz Castillo MD Ulnar neuropathy Median neuropathy , right [id number] (SNOMED CT) Active Cruz Castillo MD Median neuropathy Medications No information available. Medications Administered No information available. Allergies, Adverse Reactions, Alerts No information available. Results Date Name Value Unit Range Flag Description Internal Other: Authorizatio n - OBS [email or web address] Yes Authoriza tion: Release of Information - Authorize [facility] - Payment and Healthcare Operations ROIAUTHOTHER Yes Authoriz ation: Release of Information - Authorize Others/Insurance - Payment and Healthcare Operations HIECONSENT Yes Consent To Release information to the Health Information Exchange (HIE) [email or web address] Yes Authorizat ion: Authorization for [facility] to leave messages, voicemail, send text messages, send emails AUTHRELHCARE Yes Authoriz ation: Release/Retrieval of Information to/from Healthcare Facilities, Pharmacy Benefit Payers and Providers [email or web address] Yes Authoriz ation: Notice of privacy practices AUTHBENEFIT Yes Authoriza tion: Assignment of Benefits and Payment Agreement Plan of Care No information available. Procedures Code Procedure Name Date Entry Date CPT-55182 Nerve Conduction 9-10 studies CPT-02603 EMG with NCS (5+ muscles) - 1 limb 12/17 Vital Signs No information available. Immunizations No information available. Advance Directives No information available.
--- OUTSIDE RECORDS SUMMARY | 2024-12-16 22:29 | XMS_ITS | Clinical Summary ---
Author Organization [facility] Address [address] [facility] , [address] [place] [address] Phone Care Team Providers Care Management Services Technician Name Role Phone [facility] Unavailable Unava ilable Conditions or Problems Problem Name Problem Code Onset Date Status Entry Date Provider Comment Standard Description Annotate Ulnar neuropathy , right 289237829 (SNOMED CT) Active Cruz Castillo MD Ulnar neuropathy Median neuropathy , right [id number] (SNOMED CT) Active Cruz Castillo MD Median [...] Procedures Code Procedure Name Date Entry Date CPT-72153 Nerve Conduction 9-10 studies CPT-01935 EMG with NCS (5+ muscles) - 1 limb 12/17 Vital Signs No information available. Immunizations No information available. Advance Directives No information available.
--- OUTSIDE RECORDS SUMMARY | 2024-12-16 22:29 | XMS_ITS | Clinical Summary ---
Author Organization [facility] Address [place], [place] [address] Care Team Providers Care Stator Plate Washer Name Role Phone Mauro Kathy IBARRA Primary Care Provider [phone] Allergies Active Allergy Reactions Criticality Noted Date Comments Codeine Rash 08/02/2017 Cephalexin Hives 08/23/2017 Soap Rash,Itching 01/20/2016 Extra laundry soap Yczxi-Jyogw-Orbaine-Pramoxin e Hives 03/05/2015 Azithromycin Hives 06/15/2016 Medications [...] 24 hrs. 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 08/05/2023 [place] [facility]: 1. The uterus is normal in [...] Department Care Team Description 12/15/2024 9:24 AM TEACHER EARLY CHILDHOOD DEVELOPMENT - 12/15/2024 11:20 AM TEACHER EARLY CHILDHOOD DEVELOPMENT Surgery [facility] [address] [place] [address] Kyle Hammond MD RIGHT OPEN CARPAL TUNNEL RELEASE 12/15/2024 9:15 AM TEACHER EARLY CHILDHOOD DEVELOPMENT Anesthesia Event [facility] [address] [place] [address] Yusra Tony MD 12/15/2024 6:50 AM TEACHER EARLY CHILDHOOD DEVELOPMENT - 12/15/2024 1:15 PM TEACHER EARLY CHILDHOOD DEVELOPMENT Hospital Encounter [facility] [address] [place] [address] Kyle Hammond MD Right carpal tunnel syndrome (Primary Dx); Cubital tunnel syndrome on right; Aftercare following surgery Discharge Disposition: Home Self Care 12/15/2024 Travel 12/12/2024 7:58 PM TEACHER EARLY CHILDHOOD DEVELOPMENT - 12/12/2024 8:27 PM TEACHER EARLY CHILDHOOD DEVELOPMENT Emergency [facility] [address] [place] [address] Willow Lange PA Abrasion of left ear canal, initial encounter (Primary Dx) Discharge Disposition: Home Self Care 12/12/2024 Travel 12/01/2024 Orders Only [facility] [place] [address] [facility] [address] [place] [address] Kyle Hammond MD <No scans attached> 11/20/2024 1:30 PM TEACHER EARLY CHILDHOOD DEVELOPMENT Office Visit [facility] [address] [place] [address] Earlene Rodriguez MD Pre-Op Exam 11/19/2024 Travel 11/16/2024 Orders Only [facility] [place] [address] [place] [address] Kyle Hammond MD <No scans attached> 10/29/2024 Travel 10/04/2024 11:00 AM TEACHER EARLY CHILDHOOD DEVELOPMENT Office Visit [facility] [address] [place] [address] Kyle Hammond MD Recheck (Right carpal tunnel syndrome) 10/04/2024 Travel 09/18/2024 1:12 AM CDT - 09/18/2024 1:39 AM CDT Emergency [facility] [address] [place] [address] Miller Arellano MD Left ear pain (Primary [...] on file Legal Sex Female 5:23 AM TEACHER EARLY CHILDHOOD DEVELOPMENT Gender Identity Not on file Sexual Orientation [...] Comments Blood Pressure 134/86 12/15/2024 12:45 PM TEACHER EARLY CHILDHOOD DEVELOPMENT Pulse 65 12/15/2024 12:45 PM TEACHER EARLY CHILDHOOD DEVELOPMENT Temperature 36 C (96.8 F) 12/15/2024 12:15 PM TEACHER EARLY CHILDHOOD DEVELOPMENT Respiratory Rate 16 12/15/2024 12:45 PM TEACHER EARLY CHILDHOOD DEVELOPMENT Oxygen Saturation 95% 12/15/2024 12:45 PM TEACHER EARLY CHILDHOOD DEVELOPMENT Inhaled Oxygen Concentration - - Weight 159.7 kg (352 lb) 12/15/2024 8:15 AM TEACHER EARLY CHILDHOOD DEVELOPMENT Height 172.7 cm (5' 8) 12/15/2024 8:15 AM TEACHER EARLY CHILDHOOD DEVELOPMENT Body Mass Index 53.52 12/15/2024 8:15 AM TEACHER EARLY CHILDHOOD DEVELOPMENT Plan of Treatment Upcoming Encounters Date Type Department Care Team (Late st Contact Info) Description 12/18/2024 11:10 AM TEACHER EARLY CHILDHOOD DEVELOPMENT Office Visit [facility] [address] [place] [address] Kathy Wade PA [address] [place] [address] 12/27/2024 11:30 AM TEACHER EARLY CHILDHOOD DEVELOPMENT Office Visit [facility] [address] [facility] [address] [place] [address] Mona Francisco PA [address] [facility] [address] [place] [address] Health Maintenance Due Date Last Done Comments [...] ENDOTRACHEAL TUBE Routine 12/15/2024 9:4 0 AM TEACHER EARLY CHILDHOOD DEVELOPMENT ENDOTRACHEAL TUBE Routine 12/15/2024 9:4 0 AM TEACHER EARLY CHILDHOOD DEVELOPMENT ENDOTRACHEAL TUBE Routine 12/15/2024 9:4 0 AM TEACHER EARLY CHILDHOOD DEVELOPMENT URINE Preop 12/15/2024 7:53 AM TEACHER EARLY CHILDHOOD DEVELOPMENT ANTI HCV Routine 08/20/2023 11:17 AM CDT Encounter for hepatitis C screening test for low risk patient CLEANER TOUCH UP WORKER THIN PREP PAP SCREEN IMAGED Routine 01/26/2022 4:15 PM TEACHER EARLY CHILDHOOD DEVELOPMENT Pap smear for cervical cancer screening ANTI HIV 1/2 Routine 03/10/2017 10:45 AM CDT STD exposure from Last 3 Months or Most Recently Relevant to Health Maintenance Results * HCHG TUBE PR1, HCHG INSTRUMENT DISP PR10, HCHG STYLET PR1 (12/15/2024 9:40 AM TEACHER EARLY CHILDHOOD DEVELOPMENT) Narrative Ashutosh Flores CRNA - 12/15/2024 9:40 AM TEACHER EARLY CHILDHOOD DEVELOPMENT Ashutosh Flores CRNA 12/15/2024 9:41 AM Procedure: [...] airway Difficulty: 0 (not difficult) Ashutoshshannon Flores SLIME PLANT OPERATOR ANESTHESIA PX NOTE ORDERAB LES Final Result * Urine (12/15/2024 7:53 AM TEACHER EARLY CHILDHOOD DEVELOPMENT) ,URIN E Negative Negative 12/15/2024 8:09 AM TEACHER EARLY CHILDHOOD DEVELOPMENT [facility] Urine URINE SPECIMEN / Unknown Non-Blood / Unknown 12/15/2024 7:53 AM TEACHER EARLY CHILDHOOD DEVELOPMENT 12/15/2024 8:04 AM TEACHER EARLY CHILDHOOD DEVELOPMENT Mona IBARRA URINE Final Result Performing Organization Address [facility] Co de Phone Number [facility] [address] [place] [address], * ANTI HCV (08/20/2023 11:17 AM CDT) HEPATITIS C ANTIBODY Non-Reacti ve Non-React che 08/21/2023 6:05 AM CDT [facility] Comment:Please note, per www [...] Kathy IBARRA SEND OUTS Final Res ult [facility] [address] [place] [address], [place] * CLEANER TOUCH UP WORKER THIN PREP PAP SCREEN IMAGED (01/26/2022 4:15 PM TEACHER EARLY CHILDHOOD DEVELOPMENT) Case Report Gynecologic Cytology Report Case: [id number] Authorizing Provider: Ji Persaud MD Collected: 01/26/2022 1615 Ordering Location: [facility] Received: 01/26/2022 1702 Clinic First Screen: Ale Lucas Specimen: CLEANER TOUCH UP WORKER ThinPrep Vial Screening, Cervical 02/04/2022 8:43 AM CDT [facility] INTERPRETATION/ RESULT NEGATIVE FOR INTRAEPITHELIAL LESION OR MALIGNANCY (NIL) (none) 02/04/2022 8:43 AM CDT [facility] IMEN ADEQUACY Satisfactory for evaluation Endocervical component present 02/04/2022 8:43 AM CDT [facility] HPV REQUEST HPV if ASCUS 02/04/2022 8:43 AM CDT [facility] Date of LMP 01/13/2022 02/04/2022 8:43 AM CDT [facility] Last Pap Date 11/18/18 02/04/2022 8:43 AM CDT [facility] Last Pap Result NIL 8:43 AM CDT [facility] Abnormal Pap or [place] Bx in last 5 years No 02/04/2022 8:43 AM CDT [facility] Menstrual Status Regular Periods 02/04/2022 8:43 AM CDT [facility] [place] Bx Done Today No 02/04/2022 8:43 AM CDT [facility] Additional Information None given 02/04/2022 8:43 AM CDT [facility] Comment: Cytology is screened at [facility], Central Laboratory - [address], [place] [address] and [facility] - [address] [place] [address], [place] [address] and [facility] - [address] [place] [address] Interpreted at [facility] [place] [address] Automated Review Successful 02/04/2022 8:43 AM CDT [facility] Comment:Specimen processed s uccessfully by automated work checker device, ThinPrep Imaging System, [employer] Note The pap test is a [...] and malignant lesions. 02/04/2022 8:43 AM CDT [facility] Other (Cervical) Non-Blood / Unknown 01/26/2022 4:15 PM TEACHER EARLY CHILDHOOD DEVELOPMENT 01/26/2022 5:02 PM TEACHER EARLY CHILDHOOD DEVELOPMENT Ji Persaud MD PATHOLOGY/CYTOLOGY Mitra l Result [facility] [address] [place] [address], * ANTI HIV 1/2 (03/10/2017 10:45 AM CDT) HIV-1/HIV-2 ANTIBODY Non-Reacti ve Non-Reacti ve 03/10/2017 8:46 PM CDT [facility] Blood BLOOD SPECIMEN / Unknown Venipuncture / Unknown 03/10/2017 10:45 AM CDT 03/10/2017 10:50 AM CDT Narrative [facility] - 03/10/2017 8:46 PM CDT HIV-1 p24 and HIV-1/HIV-2 Ab not detected Ji Persaud MD SEND OUTS Final R esult [facility] [address] [place] [address], from Last 3 Months or Most Recently Relevant to Health Maintenance Insurance [employer] [facility] MOTOR VEHICLE INS ELIANE ESPARZA [facility] [employer] [facility] [place] [id number] [address] [address] [place] [address] Advance Directives * Full Code (Latest Code [...] Comments Code Status Discussion: Discussed Care Teams Stator Plate Washer Relationship Specialty Start Date End Date Kathy [place] [address] PCP - General Physician Art Coordinator 06/22/23
== END 2024-12-16 22:28 | disposition left against medical advice (07) ==
LOC: ED 22:27
PROVIDERS: PCP Student in an Organized Health Care Education/Training Program
DX: Z53.21 Procedure and treatment not carried out due to patient leaving prior to being seen by health care provider (principal)

== ENCOUNTER 2025-10-16 00:02 | Emergency (ER) | payer OTHER, SELFPAY ==
--- OUTSIDE RECORDS SUMMARY | 2025-10-16 00:04 | XMS_ITS | Clinical Summary ---
Author Organization [facility] Address [address] , [address] [place] [address] Phone Care Team Providers Care Pelt Shearer Name Role Phone [facility] Unavailable Unava ilable Conditions or Problems Problem Name Problem Code Onset Date Status Entry Date Provider Comment Standard Description Annotate Ulnar neuropathy , right [id number] (SNOMED CT) Active Cruz Castillo MD Ulnar neuropathy Median neuropathy , right [id number] (SNOMED CT) Active Cruz Castillo MD Median [...] Procedures Code Procedure Name Date Entry Date CPT-50194 Nerve Conduction 9-10 studies CPT-00000 EMG with NCS (5+ muscles) - 1 limb 12/17 Vital Signs No information available. Immunizations No information available. Advance Directives No information available.
--- OUTSIDE RECORDS SUMMARY | 2025-10-16 00:04 | XMS_ITS | Encounter Summary ---
Author Organization [facility] Address [address] [place] [address] Care Team Providers Care Homeowner Association Manager Name Role Phone None Reported, Pcp Primary Care Provider Unavail able Encounter Details Date Type Department Care Team (Latest Contact Info) Description 08/09/2025 Results Follow-Up Department of Occupational Medicine in [place], [place] [address] [phone] Berna Wiley P.A.-C., P.A., M.S. [address] [phone] QuantiFERON-Tb Gold Plus, Blood Social History Tobacco Use Types Packs/Day Years Used Date Smoking Tobacco: Every Day Cigarettes Smokeless Tobacco: Never Alcohol Use Standard Drinks/Week Comments Not Currently 0 (1 standard drink = 0.6 oz pur e alcohol) [facility] Utilities Answer Date Recorded In the past 12 months has e electric, gas, oil, or water company threatened to shut off services in your home? No 01/08/2024 Humiliation, Afraid, Rape, and Kick questionnair e Answer Date Recorded Within the last year, have y ou been afraid of your partner or ex-partner? No 10/13/2022 Within the last year, have y ou been humiliated or emotionally abused in other ways by your partner or ex-partner? No Within the last year, have y ou been kicked, hit, slapped, or otherwise physically hurt by your partner or ex-partner? No 10/13/2022 Within the last year, have y ou been raped or forced to have any kind of sexual activity by your partner or ex-partner? No 10/13/2022 Hunger Vital Sign Answer Date Recorded Within the past 12 months, y ou worried that your food would run out before you got the money to buy more. Never true 01/08/20 24 Within the past 12 months, t he food you bought just didn't last and you didn't have money to get more. Never true 01/08/2024 PRAPARE - Transportation Answer Date Re corded In the past 12 months, has l ack of transportation kept you from medical appointments or from getting medications? No 12/23 In the past 12 months, has l ack of transportation kept you from meetings, work, or from getting things needed for daily living? No 01/08/2024 Housing Stability Answer Date Recorded What is your living situation today? I [place] [address] to live 01/08/2024 Education Answer Date Recorded What is the highest level of school you have completed or the highest degree you have received? 12th grade 10/13/2022 Comments No Sex and Gender Information Value Date Recorded Sex Assigned at Female 10/13/2022 10:47 PM REGULATORY PRODUCT MANAGER Legal Sex Female 11:23 PM REGULATORY PRODUCT MANAGER Gender Identity Female 10/13/2022 10:47 PM REGULATORY PRODUCT MANAGER Sexual Orientation Straight 10/13/2022 10 :47 PM REGULATORY PRODUCT MANAGER documented as of this encounter Plan of Treatment Not on file documented as of this encounter Visit Diagnoses Not on filedocumented in this encounter Care Teams Homeowner Association Manager Relationship Specialty Start Date End Date None Reported, Pcp PCP - General Family Medicine 03/09/25 documented as of this encounter
--- OUTSIDE RECORDS SUMMARY | 2025-10-16 00:04 | XMS_ITS | Clinical Summary ---
Author Organization [facility] Address [address] [place] [address] Care Team Providers Care [employer] Name Role Phone None Reported, Pcp Primary Care Provider Unavail able Source Comments Patient records contain information from all sites at [facility]. For routine questions regarding patient records, call [phone] during business hours, M-F 8:00 AM - 5:00 PM Central Time. Record requests for emergency care only can be directed to [phone] at any time.[facility] Allergies Active Allergy Reactions Criticality Noted Date Comments Azithromycin Shortness of breath with other systemic symptoms especially skin reaction High 01/19/2024 Cephalexin Hives (Reselect Reaction),Rash 08/23/2017 Codeine Itching,Rash 08/02/2017 Kdvec-Acveb-Vdngtbh-Pra moxine Hives (Reselect Reaction) 03/05/2015 Soap Itching,Rash 01/20/2016 Extra laundry soap Medications * This document contains information received from the source organization and may not represent a complete record from that organization. clindamycin (CLINDAGEL) 1 % gel Apply 1 application topically 2 (two) times a day. 2 Active cyclobenzaprine (FLEXERIL) 10 mg tablet Take 5-10 mg by mouth at bedtime as needed. 2 Active omeprazole (PriLOSEC) [address] capsule Take 40 mg by mouth. 2 Active acetaminophen (TYLENOL) 500 mg tablet Take 500 mg by mouth every 6 (six) hours as needed for pain. Active escitalopram (LEXAPRO) 10 mg tabletIndication s:Anxiety Generalized Disorder Take 1 tablet (10 mg total) by mouth daily. 30 tablet 1 4 Active Active Problems Problem Noted Date Diagnosed Date Anxiety Generalized Disorder 03/29/2024 Overview (03/29/2024): 03/29/24 Patient presents today for discussion regarding [...] The patient describes constant worry and feeling s tressed out of the time. She is often restless, irritable, and easily annoyed. Stress present both at work and home. She states that she has a stepchild with Asperger's, which has been difficult to manage. 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 Assessment & Plan (03/29/2024 12:09 PM CDT): 03/29/24 Discussed options for treatment of anxiety [...] Follow up office visit in 4 weeks. Borderline Personality Disorder 03/29/2024 Other Ovarian Cyst Left Side 09/13/2023 Overview (09/13/2023): 10/12/2022 during menses: FINDINGS: Uterus: 3.3 x [...] left ovarian 2.5 cm cyst. 08/05/2023 [place] [facility]: 1. The uterus is normal in [...] Consider MRI further evaluation needed beyond that. Morbid Obesity Body Mass Index 50.0-59.9 Adult 1 12/14/2021 Encounters Date Type Department Care Team Description 08/09/2025 Results Follow-Up Department of Occupational Medicine in [place], [place] [address] [place] [id number] Berna Wiley P.A.-C., P.A., M.S. QuantiFERON-Tb Gold Plus, Blood 08/07/2025 11:42 AM CDT - 08/07/2025 11:59 PM CDT Hospital Encounter Department of Laboratory Medicine in [place], [place] [address] [place] [id number] Berna Wiley P.A.-C., Jonathan, M.S. Occupational Health Examination Discharge Disposition: Home or Self Care from Last 3 Months Immunizations Immunization Administration Dates Next Due 4vHPV (discontinued) 08/05/2010,12/05/2007,10/18 DTP 1996,1996,1996 DTaP (Infanrix, Tripedia) 03/04/2001,08/06/1997 HepB, Unspecified 05/07/1997, 7,1996,1995 Hib (PRP-OMP) (PedvaxHIB) 08/06/1997,,1996,1995 IPV 03/04/2001 Influenza, Unspecified 09/27/2019 MCV4 (Menveo) 11/18/2018 MMR 03/04/2001,08/06/1997 PCV20 08/20/2023 Polio, Unspecified 1996,1996, 996 SARS-COV-2 (COVID-19) - MODERNA(Discontinued) 12/11/2020 Tdap 11/18/2018,10/18/2007 SHAHNAZ 12/06/2007,05/07/1997 influenza vaccine quad (FLUZONE/FLUARIX) (6 months and older)(PF) 08/20/2023,09/27/2019 Family History Medical History Relation Name Comments Lung cancer Maternal Grandfather Breast cancer (in one breast) Mother Underwent genetic [facility] screening for gynecological and breast cancer which came out negative Uterine cancer Mother's Sister Ovarian cancer Paternal Grandmother passe d away a few months post diagnosis Relation Name Status Comments Maternal Grandfather Mother Mother's Sister Alive Paternal Grandmother Social History Tobacco Use Types Packs/Day Years Used Date Smoking Tobacco: Every Day Cigarettes Smokeless Tobacco: Never Tobacco Cessation:Ready to Q uit: Not Asked; Counseling Given: Not Answered Alcohol Use Standard Drinks/Week Comments Not Currently 0 (1 standard drink = 0.6 oz pur e alcohol) [facility] Utilities Answer Date Recorded In the past 12 months has [employer] gas, oil, or water company threatened to [...] your living situation today? I have a [facility] place to live 01/08/2024 Education Answer Date Recorded What is the highest level of school you have completed or the highest degree you have received? 12th grade 10/13/2022 Comments No Sex and Gender Information Value Date Recorded Sex Assigned at Female 10/13/2022 10:47 PM [employer]NAGER [employer]ELD Legal Sex Female 11:23 PM MANAGER [employer]ELD Gender Identity Female 10/13/2022 10:47 PM MANAGER FIELD Sexual Orientation Straight 10/13/2022 10 :47 PM MANAGER FIELD Last Filed Vital Signs Vital Sign Reading Time Taken Comments Blood Pressure 150/100 04/01/2024 4:10 AM CDT Pulse 83 04/01/2024 4:10 AM CDT Temperature 36.6 C (97.9 F) 04/01/2024 1:31 AM CDT Respiratory Rate 18 04/01/2024 4:10 AM CDT Oxygen Saturation 98% 04/01/2024 4:10 AM CDT Inhaled Oxygen Concentration - - Weight 160 kg (352 lb 11.8 oz) 04/01/2024 1:27 A M CDT Height 171.5 cm (5' 7.52) 09/29/2022 8:17 AM CS T Body Mass Index 54.4 09/29/2022 8:17 AM MANAGER FIELD Plan of Treatment Health Maintenance Due Date Last Done Comments HIV Screening 1996 Hepatitis C Screening 1996 Tobacco Cessation counseling 09/29/2023 09/29/2022 Depression Screening (Annual PHQ-2) 11/22/2024 Cervical/Vaginal Cancer Screening 01/26/2025 022 COVID-19 Vaccine (2024-12 6 season) 2025 01/08/2021, 12/11/2020 Influenza Vaccine (#1) 2025 , 08/20/2023, 09/27/2019, Additional history exists DTaP,Tdap,and Td Vaccines (8 - Td or Tdap) 11/18/2028 11/18/2018, 10/18/2007, 03/04/2001, Additional history exists Hepatitis B Vaccines Completed 05/07/1997, 01/30/1997, 1996, Additional history exists IPV Vaccines Completed 03/04/2001, 10/22, 1996, Additional history exists Varicella Vaccines Completed 12/06/2007, 05/07/1997 HPV Vaccines Completed 08/05/2010, 11/22, 10/18/2007 Pneumococcal vaccine (0-49 years) Completed 023 Procedures Procedure Name Priority Date/Time Associated Diagnosis Comments QUANTIFERON-TB GOLD PLUS, B Routine 08/07/2025 11:50 AM CDT Occupational Health Examination from Last 3 Months Results * QuantiFERON-Tb Gold Plus, Blood (08/07/2025 11:50 AM CDT) QuantiFERON-TB Gold Plus Result Negative Negative 08/09/2025 4:48 PM CDT [facility] Comment: No interferon-gamma response to M. tuberculosis antigens was detected. Latent infection with M. tuberculosis is unlikely. A single negative result does not exclude infection with M. tuberculosis. In patients at high risk for M.tuberculosis infection, a second test should be considered in accordance with the 2017 ATS/IDSA/CDC Clinical Practice Guidelines for Diagnosis of Tuberculosis in Adults and Children [Lewinsohn CHRISTY et. al. Clin. Infect. Dis. 2017;64(2):111-115]. The reference range for the 'TB1 Ag minus Nil Result' and 'TB2 Ag minus Nil Result' is an Interferon-gamma level <0.35 IU/mL. TB1 Ag minus Nil Result -0.04 IU/mL 08/09/2025 4:48 PM CDT [facility] TB2 Ag minus Nil Result -0.04 IU/mL 08/09/2025 4:48 PM CDT [facility] Mitogen minus Nil Result >10.00 IU/mL 08/09/2025 4:48 PM CDT [facility] Nil Result 0.09 IU/mL 08/09/2025 4:48 PM CDT [facility] Blood (Blood, Venous) 08/07/2025 11:50 AM CDT 08/09/2025 11:02 AM CDT [facility] - 08/09/2025 4:48 PM CDT Specimen Information: Specimen ID: [id number] Specimen Type: Blood Specimen Collection Start Date: 08/07/2025 11:50 AM Specimen Received Date: 08/09/2025 11:02 AM Specimen ID: [id number] Specimen Type: Blood Specimen Collection Start Date: 08/07/2025 11:50 AM Specimen Received Date: 08/09/2025 11:03 AM Specimen ID: [id number] Specimen Type: Blood Specimen Collection Start Date: 08/07/2025 11:50 AM Specimen Received Date: 08/09/2025 11:03 AM Specimen ID: [id number] Specimen Type: Blood Specimen Collection Start Date: 08/07/2025 11:50 AM Specimen Received Date: 08/09/2025 11:03 AM Pattie Simms P.A.-C.A., M.S. LAB MICROBIOLOGY - BLOOD ORDERABLES Final Result [facility] [address] [place] [address], [place] [facility] [place] [address] [place] [address] from Last 3 Months Insurance [employer] Care Teams [employer] Relationship Specialty Start Date End Date None Reported, Pcp PCP - General Family Medicine 03/09/25
--- NOTE | 2025-10-16 00:05 | ED_ITS ---
HPI - General Adult General Date Seen: 10/16/25 Chief complaint: Weakness Stated complaint: weakness Time Seen by Provider: 10/16/25 00:04 History of Present Illness HPI narrative: 30-year-old female with a past medical history elevated BMI, type 2 diabetes, tobacco use, anxiety, personality disorder,, tonsillectomy with post tonsillectomy hemorrhage, history of thrombocytosis. She has recent menometrorrhagia and anemia. Per [facility] care link.... She was admitted at [facility] on 09/19 and discharged the with anemia. Received a unit of packed red cells. Hemoglobin was 6.5 initially. Came up to 8.9 at discharge. She had a visit with primary care provider at the [facility] in [place] (FRED Molina) on 09/26 that references heavy vaginal bleeding beginning September 12. She went to an ER (not here in [place]) in late August with possible UTI and apparently had hemoglobin on that day of 6.5. She was admitted to a hospital overnight and received a transfusion of 1 unit packed red cells. She was started on Provera on 09/20 hold. Per that note, her Bleeding subsequently stopped. Pelvic ultrasound 09/20/2025 FINDINGS: Uterus: 8.5 x 4.4 x 4.5 cm. Normal echotexture of the myometrium. No suspicious masses. Nabothian cysts. ? Endometrium: Endometrial thickness measures 14 mm. No sign of endometrial mass or fluid. ? Ovaries: Left ovary measures 7.9 x 4.7 x 3.3 cm. Right ovary is not visualized, obscured by bowel gas. Left ovarian dermoid measuring 3.5 x 3.2 x 2.7 cm. Adjacent left ovarian simple cyst measuring 3.8 x 5.1 x 5.2 cm. Normal arterial and venous blood flow is demonstrated in the left ovary. ? Cul-de-sac: No significant free fluid. ? IMPRESSION: 1. Left ovarian dermoid and adjacent simple cyst. 2. Normal blood flow in the left ovary. 3. Nonvisualization of the right ovary. Hemoglobin was 7.4 on 09/20, up to 8.9 on 09/24. Hemoglobin remained stable at 8.9 on labs from [facility] drawn yesterday on 10/15. Yesterday white count was 12.0. Platelet count was 473. She had another visit earlier today on 10/15, to follow-up on her low hemoglobin and low iron levels. She had been on iron supplements. Per that notes she still having orthostatic dizziness despite oral hydration. No heavy bleeding or spotting. She still complaining of pelvic pain and has been taking Tylenol for that. On oral control pill (Kiki). She has an appointment next week in October to get surgery to remove her left ovarian dermoid cyst. Per patient... She has been started on her control pill by her primary few weeks ago and since then her vaginal bleeding has stopped considerably. She still has occasional spotting but no heavy bleeding. She has been having some pelvic cramping all month long but it is mild and tolerable. She takes Tylenol for it. She had been feeling a little bit weaker than her previous baseline but otherwise fine throughout the month. She has been trying to stay home. She quit smoking after her hospitalization and is now gone 24 days without a cigarette. She is not having any cough or trouble breathing. No chest pain. Beginning 3 days ago on Wednesday she just started to feel a little bit weaker than normal. She felt a little bit more dizzy and lightheaded with standing. She has also feels more tired. She began to feel little bit weaker on Wednesday. She notes that earlier today on Wednesday she slept until most noon which she rarely does. She typically rises early in the morning. She felt fatigued and tired all afternoon. She went to the clinic for a check and notes that her hemoglobin was stable at 8.9. Tonight she was feeling weaker. She also had an episode of right flank pain while she was in the shower. She also has a mild headache. No cough. No stuffy nose. No sore throat. No known sick exposures. Related Data Home Medications ?Medication ?Instructions ?Recorded ?Confirmed cyclobenzaprine 10 mg tablet 10 mg PO 3XD PRN muscle s pasm 10/16/25 10/16/25 drospirenone 3 mg-ethinyl 1 tab PO DAILY 10/16/2509/23 estradiol 0.03 mg tablet ferrous sulfate 325 mg (65 mg 325 mg PO DAILY 10/16/25 10/16/25 iron) tablet (Feosol) ondansetron 4 mg disintegrating 4 mg PO Q8H PRN nausea /vomiting 10/16/25 10/16/25 tablet pantoprazole 40 mg tablet,delayed 40 mg PO DAILY 10/1610/16/25 release tirzepatide 10 mg/0.5 mL 10 mg subcut 10/16/25 subcutaneous pen injector (Mounjaro) Allergies Allergy/AdvReac Type Severity Reaction Status Date / Time azithromycin (From Zithromax) Allergy Severe Hives Verified 10/16/25 00:13 bacitracin (From Neosporin Allergy Intermediate hives Verified 10/16/25 00:13 ([id number])) neomycin (From Neosporin Allergy Intermediate hives Verified 10/16/25 00:13 ([id number])) polymyxin B (From Neosporin Allergy Intermediate hives Verified 10/16/25 00:13 ([id number])) cephalexin (From Keflex) AdvReac Intermediate Rash Verified 10/16/25 00:13 codeine AdvReac Intermediate Rash Verified 10/16/25 00:13 [facility] Medical History PCOS (polycystic ovarian syndrome) ?E28.2 - Polycystic ovarian syndrome (ICD-10) Endometriosis ?N80.9 - Endometriosis, unspecified (ICD-10) Social History Smoking Status: Current some day smoker What tobacco products do you use: cigarettes Do you use any of these nicotine containing products: None Second hand tobacco smoke exposure: No How often do you have a drink containing alcohol: never How often do you have six or more drinks on one occasion: Never AUDIT-C Alcohol total score: 0 Non-prescribed substance use: denies use service: No Exam Narrative: Exam Narrative: Constitutional: Appears well-developed and well-nourished. Alert. Conversant. Non toxic. HENT: Head: Atraumatic. Nose: Nose normal. Mouth/Throat: Oral mucosa is clear and moist. no trismus. Pharynx normal. Ton sils surgically absent. No tonsillar enlargement, erythema, or exudate. Eyes: Conjunctivae normal. EOM normal. Pupils equal, round, and reactive to light. No scleral icterus. Neck: Normal range of motion. Neck supple. No tracheal deviation present. Cardiovascular: Normal rate, regular rhythm. No gallop. No friction rub. No murmur heard. Symmetric radial artery pulses Pulmonary/Chest: Effort normal. No stridor. No respiratory distress. No wheezes. No rales. No rhonchi . No tenderness. Abdominal: Soft. Bowel sounds normal. No distension. No mass. Mild bilateral lower quadrant tenderness. (patient says that she does have some pelvic cramping that is been there all month long. It is not worse than normal today or lately). No rebound. No guarding. No CVA tenderness. Musculoskeletal: RUE: Normal range of motion. No tenderness. No deformity LUE: Normal range of motion. No tenderness. No deformity RLE: Normal range of motion. No edema. No tenderness. No deformity LLE: Normal range of motion. No edema. No tenderness. No deformity Neurological: Alert and oriented to person, place, and time. Normal strength. CN II-VII intact. No sensory deficit. GCS eye subscore is 4. GCS verbal subscore is 5. GCS motor subscore is 6. Normal coordination Skin: Skin is warm and dry. No rash noted. No pallor. Normal capillary refill. Psychiatric: Normal mood. Normal affect. Polite. Const: Vital Signs, click to edit/add: Vital Signs - 24 hr 10/16/25 00:07 Temperature 99.3 F Pulse Rate [Pulse Oximeter] 90 Respiratory Rate 18 Blood Pressure [Ri ght Upper Arm] 151/87 H Pulse Oximetry 98 Oxygen Delivery Me thod Room Air Course Vital Signs Vital signs: Initial Vital Signs Temperature 99.3 F 10/16/25 00:07 Temperature Source Temporal Artery Scan 10/16/25 00:07 Pulse Rate 90 10/16/25 00:07 Respiratory Rate 18 10/16/25 00:07 Blood Pressure 151/87 H 10/16/25 00:07 Blood Pressure Mean 108 H 10/16/25 00:07 Pulse Oximetry 98 10/16/25 00:07 Oxygen Delivery Method Room Air 10/16/25 00:07 Vital Signs Temperature 99.3 F 10/16/25 00:07 Pulse Rate 90 10/16/25 00:07 Respiratory Rate 18 10/16/25 00:07 Blood Pressure 151/87 H 10/16/25 00:07 Pulse Oximetry 98 10/16/25 00:07 Oxygen Delivery Method Room Air 10/16/25 00:07 Temperature 99.3 F 10/16/25 00:07 Pulse Rate 90 10/16/25 00:07 Respiratory Rate 18 10/16/25 00:07 Blood Pressure 151/87 H 10/16/25 00:07 Pulse Oximetry 98 10/16/25 00:07 Oxygen Delivery Method Room Air 10/16/25 00:07 Medications Administered Medications: Discontinued Medications Generic Name Dose Route Start Last Admin Trade Name Nurys PRN Reason Stop Dose Admin Sodium Chloride 1,000 mls @ 1,000 mls/hr 10/16/25 00:45 10/16/25 02:19 0.9 % Sodium Chloride 1000 Ml IV 10/16/25 01:44 Infused .Q1H PRICILA Infusion Ketorolac Tromethamine 15 mg 10/16/25 00:40 10/16/25 01:11 Ketorolac 15 Mg/Ml Inj IVP 10/16/25 00:41 15 mg ONCE ONE Administration Medical Decision Making [facility] Narrative Medical decision making narrative: 30-year-old female presenting to the ER today with generalized weakness, lightheadedness and presyncope (not vertigo) and feeling fatigued. She has recent trouble with menometrorrhagia and anemia requiring transfusion while in the hospital at [place] about 4 weeks ago. She is now on control pills and iron supplements and is reporting minimal ongoing vaginal bleeding (minimal occasional spotting) but does note acute on chronic weakness over the past 3 days or so. She was already in her primary care clinic earlier today and had repeat hemoglobin which remain stable from a few weeks ago (8.9). Despite that she is feeling a little bit weaker than normal tonight so came to the ER. First concern here is for possible worsening anemia. We did recheck a CBC which confirm stability of her hemoglobin. It is 9.1 based on our lab. I do notice that other labs from CBC showed mild leukocytosis with white count of 12.2 This was similar to the labs drawn in clinic earlier today. She also has thrombocytosis with a platelet count of 475. She has a history of thrombocytosis and this is similar to prior labs. At this point she is not requiring emergent transfusion. At this point she does not seem to be experiencing worsening anemia as a explanation for her worsening generalized weakness. Consider other causes. She does have a low-grade temperature of 99.3?. She denies any other infection symptoms but did have an episode of right flank pain earlier tonight. Urinalysis is equivocal with 5-10 white cells per high-power field but also squamous epithelial cells suggesting contamination. Given fever I think we will treat her with a course of antibiotics for possible UTI. At this point she is not having any ongoing flank pain that raises suspicion for kidney stone, pyelonephritis. I do not think that CT imaging is indicated. She is not having any cough or sore throat but given her low-grade temperature, consider viral syndrome. PCR for COVID, influenza a/B, RSV is negative. She is not . Electrolytes are normal. Blood sugar is 125. Kidney function normal. There could be some component of dehydration contributing to her weakness. She reports that she has been drinking a lot of fluids and staying well hydrated, but the specific gravity on your urinalysis is concentrated up to 1.025. She received a L of IV fluids here in the ER. Patient does not feel substantially better. Overall though, she is reassured by her stable hemoglobin. She is comfortable with plan for close outpatient follow-up. Precautions for return to the ER reviewed. Lab Data Labs: Lab Results 10/16/25 10/16/25 10/16/25 Range/Units 00:50 00:55 01:00 WBC 12.24 H (4.50-11.00) K/uL RBC 4.39 (4.00-5.20) m/uL Hgb 9.1 L (12.0-16.0) gm/dL Hct 31.7 L (33.0-51.0) % MCV 72 L (80-100) fL MCH 21 L (26-34) pg MCHC 29 L (32-36) gm/dL RDW Coeff of Lj 23.0 H (11.5-15.5) % Plt Count 475 H (140-440) K/uL Neut % (Auto) 61.6 (42.0-72.0) % Lymph % (Auto) 29.7 (20-44) % Glynn % (Auto) 7.4 (0.0-11.0) % Eos % (Auto) 1.1 (0.0-7.0) % Baso % (Auto) 0.1 (0.0-3.0) % Neut # (Auto) 7.50 H (1.7-7.0) K/uL Lymph # (Auto) 3.60 H (0.90-2.90) K/uL Glynn # (Auto) 0.90 (0.00-0.90) K/UL Eos # (Auto) 0.10 (0.00-0.50) K/uL Baso # (Auto) 0.00 (0.00-0.30) K/uL Abs Immat Gran (auto) 0.00 (0.00-0.30) K/uL Imm/Tot Granulo (auto) 0.1 % Sodium 136 (135-149) mmol/L Potassium 4.4 (3.6-5.1) mmol/L Chloride 106 (96-114) mmol/L Carbon Dioxide 24 (20-32) mmol/L Anion Gap 6 L (7-15) mEq/L BUN 11 (5-24) mg/dL Creatinine 0.6 (0.5-1.5) mg/dL Estimated Creat Clear 139.56 Estimated GFR 125 ml/min Glucose 125 H (60-115) mg/dL Calcium 9.2 (8.4-10.6) mg/dL Urine Color Yellow (Yellow) Urine Appearance Cloudy A (Clear) Urine pH 5.5 (5.0-8.5) Ur Specific Ellington 1.025 (1.000-1.030) Urine Protein Negative (Negative) Urine Glucose (UA) Negative (Negative) Urine Ketones Negative (Negative) Urine Blood 1+ A (Negative) Urine Nitrite Negative (Negative) Urine Bilirubin Negative (Negative) Urine Urobilinogen 0.2 (0.2-1.0) Ur Leukocyte Esterase 1+ A (Negative) Urine RBC 2-5 A (0-2) Urine WBC 5-10 A (0-5) Ur Squamous Epith Cells Moderate A (None-Few) Amorphous Sediment Few A (None) Urine Bacteria Moderate A (None) Urine HCG, Qual Negative (Negative) SARS-CoV-2 (PCR) Negative SARS-CoV-2 (Negative) Influenza Type A (PCR) Negative PCR FLU A (Negative) Influenza Type B (PCR) Negative PCR FLU B (Negative) RSV (PCR) Negative PCR RSV (Negative) Blood Type A Positive Antibody Screen NEGATIVE ECG Data Attestation: I personally reviewed and interpreted this ECG as follows: Interpretation: Normal sinus rhythm with occasional PVCs Rate 85 NE interval 158. No delta waves Normal QRS axis. Nonspecific T-wave flattening. No ST segment elevation or depression. QTC 374, QTC 445 Discharge Plan Discharge Clinical Impression: Anemia, Dizziness Patient Disposition: Home, Self-Care Condition: Stable Instructions: Dizziness (ED), Anemia (ED) Additional Instructions: As we discussed, so far your hemoglobin remains low but is stable and not dropping. Please monitor carefully and if you are having more vaginal bleeding, worsening pain in your pelvis, worsening dizziness, please see your doctor or come back to the ER right away. We do notice that you have a low-grade temperature tonight of 99.3. Your white blood cell count is mildly elevated at 12.2. Your urine sample is weakly abnormal, but does not clearly indicate an infection. We are having the lab run a urine culture which takes 1 or 2 days to result back. If the culture shows an infection we will contact you by phone to start you on antibiotics. If you notice urinary symptoms, or worsening fever, please come back to the ER or see her doctor right away. Please follow-up with your regular doctor for repeat labs within 3-4 days. Prescriptions: No Action cyclobenzaprine 10 mg tablet 10 mg PO 3XD PRN (Reason: muscle spasm) pantoprazole 40 mg tablet,delayed release (DR/EC) 40 mg PO DAILY ondansetron 4 mg tablet,disintegrating 4 mg PO Q8H PRN (Reason: nausea/vomiting) drospirenone-ethinyl estradiol 3-0.03 mg tablet 1 tab PO DAILY Mounjaro 10 mg/0.5 mL pen injector 10 mg subcut ferrous sulfate [Feosol] 325 mg (65 mg iron) tablet 325 mg PO DAILY Follow Up/Referrals: Kathy Wade PA-C [Primary Care Provider, Family Practice] Stand Alone Forms: [employer] Info Instructions
--- OUTSIDE RECORDS SUMMARY | 2025-10-16 00:05 | XMS_ITS | Clinical Summary ---
Author Organization [employer] [facility] [employer] [facility] Address [address] [place] [id number] Care Team Providers Care Installment Account Checker Name Role Phone Kathy Wade Primary Care Provider [phone] Janeth Reyes RN Unavailable [phone] Allergies Active Allergy Reactions Criticality Noted Date Comments Codeine Rash 08/02/2017 Cephalexin Hives 08/23/2017 Metformin Hives,Rash 04/24/2025 Soap Rash,Itching 01/20/2016 Extra laundry soap Vbzeg-Jnvcb-Wglnujx-Pramoxin e Hives 03/05/2015 Azithromycin Hives 06/15/2016 Medications pantoprazole 40 mg delayed-release tabletIndications :Gastroesophageal reflux disease, unspecified whether esophagitis present Take 1 Tablet (40 mg) by mouth once daily. 90 Tablet 025 Active ondansetron (ZOFRAN ODT) 4 mg disintegrating tabletIndications :Nausea Place 1 Tablet (4 mg) on the tongue every 8 hours if needed for Nausea/Vomiting . 30 Tablet 025 Active cyclobenzaprine (FLEXERIL) 10 mg tabletIndications :Upper back pain Take 1 Tablet (10 mg) by mouth 3 times daily if needed for Muscle Spasm. 21 Tablet 025 Active pen tirzepatide (Mounjaro) 10 mg/0.5 mL penIndications:Ty pe 2 diabetes mellitus without complication, without long-term current use of insulin (HC) Inject 10 mg subcutaneous once weekly. 4 Pen 1 Active medroxyPROGESTERo ne (PROVERA) 10 mg tabletIndications :Acute blood loss anemia,Abnormal uterine bleeding (AUB) Take 20 mg (2 tablets) three times daily for 7 days 42 Tablet 5 12:33 PM CDT Active ferrous sulfate 325 mg (65 mg iron) tabletIndications :Acute blood loss anemia Take 1 Tablet (325 mg) by mouth once daily with a meal. 90 Tablet 5 12:33 PM CDT Active drospirenone-ethi nyl estradioL (LOLA) 3-0.03 mg tabletIndications :Abnormal uterine bleeding (AUB) Take 1 Tablet by mouth once daily. 84 Tablet Active blood-glucose meterIndications: Type 2 diabetes mellitus without complication, without long-term current use of insulin (HC) Inject subcutaneous. Dispense meter covered by pts insurance. 1 Each 2024 Discontinued (*Med complete/Reg imen complete/Lev el of care change) lancetsIndication s:Type 2 diabetes mellitus without complication, without long-term current use of insulin (HC) As directed. Test 3 times per day. 100 Each 12 025 2024 Discontinued (*Med complete/Reg imen complete/Lev el of care change) blood sugar diagnostic (Blood Glucose Test) stripIndications: Type 2 diabetes mellitus without complication, without long-term current use of insulin (HC) Test 3 times per day. 100 Each 12 025 2024 Discontinued (*Med complete/Reg imen complete/Lev el of care change) lidocaine 5 % topical patchIndications: Upper back pain Apply on dry, clean, hairless skin. Apply 1 patch to painful area of skin for up to to 12 hours within 24 hour period. 30 Patch 2024 Discontinued (Pharmacist change per medication history (E-cancel not sent)) Active Problems Problem Noted Date Diagnosed Date Personality disorder 09/26/2025 Overview (09/26/2025): AI Summary: As of 02/12/25: The patient has a history of borderline personality disorder, diagnosed around age 22, with a past history of anxiety and completed Dialectical Behavior Therapy (DBT) and group therapy. On 03/29/2024, treatment options for anxiety in the context of borderline personality disorder were discussed. The patient presented to the ED on multiple occasions for various complaints, including ear pain, shoulder pain, and increased stress, but these visits did not result in any documented treatment changes. 09/29/22: TSH 1.9 mIU/L 08/03/24: Glu 118 mg/dL Recent encounter dx: 03/29/24: Office Visit - Department of Family Medicine, [facility], in [place], [place], Family Medicine (from [facility]) 08/07/19: Appointment - [facility] Recent notes: 01/03/25: Progress Notes - Nursing Notes by Gricelda Ambrose NP ... [+] ? Borderline personality disorder (HC) F60.3 12/17/24: ED Provider Note by Arthur Man MD ... [+] Borderline personality disorder (HC) 09/18/24: ED Provider Note - EMERGENCY DEPARTMENT STAFF PHYSICIAN NOTE by Miller Arellano MD ... [+] ? Borderline personality disorder (HC) 03/29/2024 ... [+] The patient states that she has a longstanding history of anxiety and was diagnosed with borderline personality disorder when she was approximately age 22. ... [+] She states that she has completed DBT for borderline personality disorder in the past, as well as group therapy. ... [+] 03/29/24 Discussed options for treatment of anxiety in the setting of borderline personality disorder. 06/19/24: ED Provider Note - EMERGENCY DEPARTMENT STAFF PHYSICIAN NOTE by Theresa Weems MD ... [+] Cally Nicholas is a 29 y.o. female with a relevant past history of anxiety and borderline personality disorder who presents to the ED for evaluation of left shoulder pain that radiates down her arm. 08/07/19: Progress Notes - PSYCHIATRY SERVICES DIAGNOSTIC ASSESSMENT by Sivan Smith NP ... [-] Cally Nicholas is a 24 y.o. female who is referred for psychiatric evaluation and management regarding symptoms of depression and anxiety, and to discuss possible personality disorder. ... [-] She mentioned to him during that visit that she wondered about depression and possible personality issues, noting that she had some friends that talked about Borderline Personality. ... [-] Of note, the patient endorses many symptoms and long-standing patterns consistent with a potential personality disorder as follows: ... [+] Borderline personality disorder (HC) F60.3 ... [+] Of note, she endorses many symptoms and long-standing patterns consistent with Borderline personality disorder as noted in the HPI, and she is given more information to review. Menorrhagia with irregular cycle 09/26/2025 Acute blood loss anemia 09/20/2025 Thrombocytosis 09/20/2025 Type 2 diabetes mellitus 09/18/2025 Overview (09/26/2025): AI Summary: As of 03/27/25: The patient has a family history of type 2 diabetes. On 08/20/2023, diabetes mellitus screening was performed. Metformin, a blood glucose meter, lancet, and blood sugar test strips were prescribed on 03/30/2025 for type 2 diabetes mellitus without complication, without long-term current use of insulin. 03/27/25: A1c 6.5 % 08/03/24: Cr 0.76 mg/dL On meds: metformin Recent encounter dx: 03/27/25: Appointment - [facility] Tobacco use disorder 03/27/2025 Borderline personality disorder 03/29/2024 Overview (09/26/2025): AI Summary: As of 01/03/25: The patient has a history of borderline personality disorder, first diagnosed around age 22, with a documented history of anxiety. The patient has completed dialectical behavior therapy (DBT) and group therapy in the past. On 03/29/2024, treatment options for anxiety were discussed in the context of borderline personality disorder. 09/29/22: TSH 1.9 mIU/L 08/03/24: Glu 118 mg/dL Recent encounter dx: 03/29/24: Office Visit - Department of Family Medicine, [facility], in [place], [place], Family Medicine (from [facility]) 08/07/19: Appointment - [facility] Recent notes: 01/03/25: Progress Notes - Nursing Notes by Gricelda Ambrose NP ... [+] ? Borderline personality disorder (HC) F60.3 12/17/24: ED Provider Note by Arthur Man MD ... [+] Borderline personality disorder (HC) 09/18/24: ED Provider Note - EMERGENCY DEPARTMENT STAFF PHYSICIAN NOTE by Miller Arellano MD ... [+] ? Borderline personality disorder (HC) 03/29/2024 ... [+] The patient states that she has a longstanding history of anxiety and was diagnosed with borderline personality disorder when she was approximately age 22. ... [+] She states that she has completed DBT for borderline personality disorder in the past, as well as group therapy. ... [+] 03/29/24 Discussed options for treatment of anxiety in the setting of borderline personality disorder. 06/19/24: ED Provider Note - EMERGENCY DEPARTMENT STAFF PHYSICIAN NOTE by Theresa Weems MD ... [+] Cally Nicholas is a 29 y.o. female with a relevant past history of anxiety and borderline personality disorder who presents to the ED for evaluation of left shoulder pain that radiates down her arm. 08/07/19: Progress Notes - PSYCHIATRY SERVICES DIAGNOSTIC ASSESSMENT by Sivan Smith NP ... [-] She mentioned to him during that visit that she wondered about depression and possible personality issues, noting that she had some friends that talked about Borderline Personality. ... [+] Borderline personality disorder (HC) F60.3 ... [+] Of note, she endorses many symptoms and long-standing patterns consistent with Borderline personality disorder as noted in the HPI, and she is given more information to review. ... [+] As such, will assign this diagnosis of Borderline Personality, as it is quite clear given her history and reported symptoms that this is the case. 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 Morbid obesity with BMI of 50.0-59.9, adult [...] left ovarian 2.5 cm cyst. 08/05/2023 [facility]: 1. The uterus is normal in [...] Consider MRI further evaluation needed beyond that. 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 On 12/29/2023, semaglutide (Wegovy) 0.25 mg/0.5 mL pen was initiated for weight management. No treatment changes have been made in the last 12 months. 12/16/24: BMI 51.97 kg/m2 01/03/25: Wt 162 kg Recent encounter dx: 12/30/23: Support OP Encounter - [facility] 10/14/22: Office Visit - Department of Obstetrics and Gynecology in [place], [place], Obstetrics and Gynecology (from [facility]) Recent notes: 01/03/25: Progress Notes - Nursing Notes by Gricelda Ambrose NP ... [+] ? Morbid obesity (HC) E66.01 ... [+] ? Morbid obesity with BMI of 50.0-59.9, adult (HC) E66.01, Z68.43 12/17/24: ED Provider Note by Arthur Man MD ... [+] Morbid obesity with BMI of 50.0-59.9, adult (HC) ... [+] Morbid obesity (HC) 09/18/24: ED Provider Note - EMERGENCY DEPARTMENT STAFF PHYSICIAN NOTE by Miller Arellano MD ... [+] ? Morbid obesity with BMI of 50.0-59.9, adult (HC) 12/29/2023 ... [+] ? Morbid obesity (HC) 10/14/2022 12/29/23: Progress Notes - Nursing Notes by FRED Womack ... [+] General Appearance: Pleasant, alert, morbidly obese. ... [+] Morbid obesity with BMI of 50.0-59.9, adult (HC) E66.01 semaglutide (Wegovy) 0.25 mg/0.5 mL pen 07/29/21: Progress Notes - Note by Pablo Trevizo DO (from [facility]) ... [+] PHYSICAL EXAM: GENERAL: Overall healthy-appearing but morbidly obese 26-year-old female in no acute distress. No significant past medical history 07/29/2011 01/16/2016 Encounters Date Type Department Care Team Description 10/15/2025 2:50 PM [employer]S [employer]OR Office Visit [facility] [address] [place] [address] Kathy Wade PA Anemia (Recheck Iron levels, OBGYN will remove cyst 10/24) 10/15/2025 Travel 09/26/2025 7:40 AM CORONER'S JUROR Office Visit [facility] [address] [facility] [address] [address] Toni Peters CNM Follow Up (ED visit for anemia) 09/26/2025 Travel 09/24/2025 7:25 AM CORONER'S JUROR Office Visit [facility] [address] [place] [address] Kathy Wade PA Hospital F/U (Low HGB. Anemia. Still feeling Run down. Having some Dizzy spells more toward the evening. ) 09/24/2025 Travel 09/21/2025 Patient Outreach [facility] [address] [place] [address] Chanda Crowder, RN Primary RN Care Management; Hospital F/U (LACE 59) 09/20/2025 Patient Outreach [facility] Care Management Team Medical Case Management Ambulatory [address] [place] [address] Kelly Pringle Care Coordination 09/19/2025 10:57 PM CDT - 09/20/2025 10:30 AM CDT Hospital Encounter [facility] [address] [place] [address] Rodney Kulkarni MD Hospitalist, [facility] [place], MD Delmy Tapia, FRED Nieves Brittany Annette, DO Anemia, unspecified type (Primary Dx); Acute blood loss anemia; Adjustment disorder with mixed disturbance of emotions and conduct; Borderline personality disorder (HC); Generalized anxiety disorder; Abnormal uterine bleeding (AUB) Discharge Disposition: Home Self Care 09/19/2025 Travel 09/18/2025 9:05 AM CDT Office Visit [facility] [address] [place] [address] Kathy Wade PA Ear Problem (09/03 ear at urgent care. No infection. Last night started feeling cold, not well, sore throat and now left ear.) 09/18/2025 Travel 09/11/2025 Travel 09/04/2025 Telephone [facility] [address] [place] [phone] Ibeth Olvera MD Appointment Request ([facility] FOR EAR PAIN/EAR FLUID ) 09/03/2025 7:41 PM CDT - 09/03/2025 8:40 PM CDT Emergency [facility] [address] [place] [address] Kathy Pantoja DO Ear pain, left (Primary Dx); Fluid level behind tympanic membrane of left ear Discharge Disposition: Home Self Care 09/03/2025 Travel 07/18/[address] [facility] [address] [place] [address] Cathi Arteaga NP Prior Authorization (lidocaine 5 % topical patch Denied) 07/16/2025 12:50 PM CDT Office Visit [facility] [address] [place] [address] Cathi Arteaga NP Back Pain (left upper back. pt thinks she just over exerted herself over the weekend. hurts to take deep breath. / x 2 days) 07/16/2025 Travel from Last 3 Months Immunizations Immunization Administration Dates Next Due COVID-19 vaccine (Moderna 100mcg/0.5mL) PF, MDV 01/08/2021,12/11/2020 DTP 1996,1996,1996 DTaP 03/04/2001,08/06/1997 HIB [...] Medical History Relation Name Comments Diabetes Father Rodney Obesity Father Rodney Ovarian cysts Maternal Aunt 1 Uterine cancer Maternal Aunt 2 Cancer-ovarian Maternal Grandmother Marry Cancer-breast Mother Lary Ovarian cysts Mother Lary Cancer-ovarian Paternal Grandmother Sabra Obesity Sister 2 Ramila Relation Name Status Comments Brother Alive Father Rodney Alive Maternal Aunt 1 Alive Maternal Aunt 2 Alive Maternal Grandmother Marry Mother Lary Alive Paternal Grandmother Sabra Sister 1 Joy Alive Sister 2 Ramila Alive Social History Tobacco Use Types Packs/Day Years Used Date Smoking Tobacco: Light Smoker Cigarettes 0.3 6 Started: 012; Last attempted to quit: 02/14/2018 Smokeless Tobacco: Never Tobacco Cessation:Ready to Q uit: Not Asked; Counseling Given: Not Answered Comments:08/02/19 2-3 cigarettes per day 07/20/20 not smoking - social Passive Exposure Comments:social smoker Alcohol Use Standard Drinks/Week Comments Not Currently 0 (1 standard drink = 0.6 oz pur e alcohol) PHQ-2 Answer Date Recorded PHQ-2 TOTAL SCORE 0 03/27/2025 Social Connections Answer Date Recorded Do you often feel lonely or isolated from those around you? 0 09/20/2025 Financial Resource Strain Answer Date R ecorded Difficulty of Paying Living Expenses 3 03/22/2025 Difficulty of Paying Living Expenses Not on file 03/22/2025 Food Insecurity Answer Date Recorded Do you worry your food will run out before you are able to buy more? 1 09/20/2025 Transportation Needs Answer Date Record ed Does lack of transportation keep you from medica l appointments? 1 09/20/2025 Does lack of transportation keep you from work, meetings or getting things that you need? 1 09/20/2025 Housing Stability Answer Date Recorded What is your housing situation today? 1 09/20/2025 Interpersonal Safety Answer Date Record ed Are you being hit, kicked, p ushed or yelled at (see row info)? No 09/19/2025 Interpersonal Safety Abuse 12 - 18 Not on file 09/19/2025 Interpersonal Safety Ambulatory Vulnerability No t on file 09/19/2025 Utilities Answer Date Recorded Do you have trouble paying f or utilities (for example, heat, electricity, water, phone)? 1 09/20/2025 Comments No Sex and Gender Information Value Date Recorded Sex Assigned at Female 03/05/2025 10:26 PM CDT Legal Sex Female 5:23 AM [employer]ER'S J[employer]OR Gender Identity Female 03/05/2025 10:26 PM CDT Sexual Orientation Straight 03/05/2025 10 :26 PM CDT Obstetrics History Para Term AB IAB SAB Ectopic Multiple Livin g Live Births 8 0 0 0 8 0 0 0 0 0 0 Date Outcome GA Total Labor Labor/2nd/3rd Weight Sex Type Anes PTL Sana A1 A5 Name Clin AB AB AB AB AB AB AB AB Last Filed Vital Signs Vital Sign Reading Time Taken Comments Blood Pressure 120/84 10/15/2025 2:46 PM COR[employer]ER'S JUROR Pulse 77 10/15/2025 2:46 PM CORONER'S JUROR Temperature 36.8 C (98.2 F) 09/20/2025 7:12 AM CDT Respiratory Rate 16 09/20/2025 7:12 AM CDT Oxygen Saturation 99% 10/15/2025 2:46 PM CORONER'S JUROR Inhaled Oxygen Concentration - - Weight 159.9 kg (352 lb 9.6 oz) 10/15/2025 2:46 PM CORONER'S JUROR Height 174.6 cm (5' 8.75) 09/26/2025 7:50 AM CS T Body Mass Index 52.45 09/26/2025 7:50 AM CORONER'S JUROR Plan of Treatment Upcoming Encounters Date Type Department Care Team (Late st Contact Info) Description 10/24/2025 7:45 AM CORONER'S JUROR Office Visit [facility] [address] [address] [place] [address] Toyin Valentine, [address] [phone] Health Maintenance Due Date Last Done Comments Influenza Vaccine (#1) 2025 , 08/20/2023, 09/27/2019, Additional history exists Depression screening for age 12+ 03/27/2026 03/27/2025, 01/26/2022, 12/24/2020, Additional history exists BMI (ht and wt on same day) for age 18+ 09/26/2026 09/26/2025, 11/20/2024, 12/14/2022, Additional history exists Tetanus booster 11/18/2028 11/18/2018, 10/18/2007 Pap test for age 21-65 03/27/2030 , 03/27/2025, 01/26/2022, Additional history exists RSV vaccine for adults or (1 - 1-dose 75+ series) 2071 Hepatitis B series for 19+ Completed 05/07, 01/30/1997, 01/30/1997, Additional history exists HPV series for age 9-45 Addressed 03/15/20 12 (Declined), 08/05/2010, 12/05/2007, Additional history exists Overridden with the intention of not completing the topic HIV for age 15-65 Completed 03/10/2017 Hepatitis C screening for age 18-79 Completed 08/20/2023 Pneumococcal series for age 6-49 Completed 08/20/2023 Procedures Procedure Name Priority Date/Time Associated Diagnosis Comments RED CELL MORPHOLOGY STAT 10/15/2025 3 :19 PM COR[employer]ER'S JUROR Abnormal uterine bleeding (AUB) Acute blood loss anemia PLATELET ESTIMATE STAT 10/15/2025 3:1 9 PM COR[employer]ER'S JUROR Abnormal uterine bleeding (AUB) Acute blood loss anemia CBC WITH AUTO DIFFERENTIAL STAT 10/15/2025 3:19 PM COR[employer]ER'S JUROR Abnormal uterine bleeding (AUB) Acute blood loss anemia CBC WITH AUTO DIFFERENTIAL STAT 10/15/2025 3:19 PM COR[employer]ER[employer]S JUROR Abnormal uterine bleeding (AUB) Acute blood loss anemia CBC WITH AUTO DIFFERENTIAL Routine 09/24/2025 8:19 AM COR[employer]ER'S JUROR Acute blood loss anemia BASIC METABOLIC PANEL Routine 09/24/2025 8:19 AM CORONER'S JUROR Acute blood loss anemia CBC WITH AUTO DIFFERENTIAL Routine 09/24/2025 8:19 AM CORONER'S JUROR Acute blood loss anemia URINE ALBUMIN TO CREATININE RATIO, RANDOM Routine 09/24/2025 8:19 AM CORONER'S JUROR Type 2 diabetes mellitus without complication, without long-term current use of insulin (HC) POTASSIUM Today 09/20/2025 8:03 AM CDT GLUCOSE METER Routine 09/20/2025 7:48 AM CDT IRON PLUS IRON BINDING CAP MARC 09/20/2025 4:40 AM CDT LD,TOTAL Today 09/20/2025 4:40 AM CDT HAPTOGLOBIN Today 09/20/2025 4:40 AM CDT RETICULOCYTES Today 09/20/2025 4:40 AM CDT HEMOGLOBIN Timed 09/20/2025 4:40 AM CDT VITAMIN B12 Early AM 09/20/2025 4:40 AM CDT FERRITIN Today 09/20/2025 4:40 AM CDT TRANSFUSE RBC (NURSE COMMUNICATION ORDER) STAT 09/20/2025 2:53 AM CDT US PELVIS COMPLETE TA AND TV STAT 09/20/2025 2:46 AM CDT RBC W/O TYPE & SCREEN STAT 09/20/2025 1:44 AM CDT RED BLOOD CELLS EA UNIT STAT 09/20/2025 1:05 AM CDT TYPE & SCREEN STAT 09/20/2025 1:[address] ABDOMEN PELVIS STONE PROTOCOL WO STAT 09/20/2025 12:44 AM CDT PLATELET ESTIMATE STAT 09/20/2025 12: 31 AM CDT RED CELL MORPHOLOGY STAT 09/20/2025 1 2:31 AM CDT HEPATIC FUNCTION PANEL STAT 12:31 AM CDT LIPASE STAT 09/20/2025 12:31 AM CDT CBC W PLT NO DIFF STAT 09/20/2025 12: 31 AM CDT BASIC METABOLIC PANEL STAT 09/20/2025 12:31 AM CDT URINALYSIS MICROSCOPIC STAT 12:07 AM CDT URINE STAT 09/20/2025 12:07 AM CDT UA W/ SEDIMENT EXAM REFLEXED PER CRITERIA STAT 09/20/2025 12:07 AM CDT BASIC METABOLIC PANEL Routine 09/18/2025 9:42 AM CDT Type 2 diabetes mellitus without complication, without long-term current use of insulin (HC) URINE ALBUMIN TO CREATININE RATIO, RANDOM Routine 09/18/2025 9:42 AM CDT Type 2 diabetes mellitus without complication, without long-term current use of insulin (HC) HEMOGLOBIN A1C MONITORING (POCT) Routine 09/18/2025 9:42 AM CDT Type 2 diabetes mellitus without complication, without long-term current use of insulin (HC) HPV HIGH RISK Routine 03/27/2025 11:50 AM CDT Screening for cervical cancer ANTI HCV Routine 08/20/2023 11:17 AM CDT Encounter for hepatitis C screening test for low risk patient ANTI HIV 1/2 Routine 03/10/2017 10:45 AM CDT STD exposure from Last 3 Months or Most Recently Relevant to Health Maintenance Results * (ABNORMAL) CBC WITH AUTO DIFFERENTIAL (10/15/2025 3:19 PM CORONER'S JUROR) Only the most recent of2 resultswithin the time period is included. WHITE BLOOD COUNT 12.0(H) 4.5 - 11.0 thou/cu mm 10/15/2025 6:40 PM [facility] RED BLOOD COUNT 4.30 4.00 - 5.20 mil/cu mm 10/15/2025 6:40 PM [facility] HEMOGLOBIN 8.9(L) 12.0 - 16.0 g/dL 10/15/2025 6:40 PM [facility] HEMATOCRIT 31.2(L) 33.0 - 51.0 % 10/15/2025 6:40 PM [facility] MCV 73(L) 80 - 100 fL 10/15/2025 6:40 PM [facility] MCH 20.7(L) 26.0 - 34.0 pg 10/15/2025 6:40 PM [facility] MCHC 28.5(L) 32.0 - 36.0 g/dL 10/15/2025 6:40 PM [facility] RDW 23.1(H) 11.5 - 15.5 % 10/15/2025 6:40 PM [facility] PLATELET COUNT 473(H) 140 - 440 thou/cu mm 10/15/2025 6:40 PM [facility] MPV 10.4 6.5 - 11.0 fL 10/15/2025 6:40 PM [facility] % NEUT 63.1 % 10/15/2025 6:40 PM [facility] % LYMPH 27.9 % 10/15/2025 6:40 PM [facility] % MONO 7.6 % 10/15/2025 6:40 PM [facility] % EOS 1.1 % 10/15/2025 6:40 PM [facility] % BASO 0.3 % 10/15/2025 6:40 PM [facility] ABSOLUTE NEUTROPHILS 7.6(H) 1.7 - 7.0 thou/cu mm 10/15/2025 6:40 PM [facility] ABSOLUTE LYMPHOCYTES 3.3(H) 0.9 - 2.9 thou/cu mm 10/15/2025 6:40 PM [facility] ABSOLUTE MONOCYTES 0.9(H) <0.9 thou/cu mm 10/15/2025 6:40 PM [facility] ABSOLUTE EOSINOPHILS 0.1 <0.5 thou/cu mm 10/15/2025 6:40 PM [facility] ABSOLUTE BASOPHILS 0.0 <0.3 thou/cu mm 10/15/2025 6:40 PM [facility] Blood BLOOD SPECIMEN / Unknown [facility] Collect / Unknown 10/15/2025 3:19 PM [employer]S JUROR 10/15/2025 3:19 PM COR[employer]ER[employer]S JUROR us Kathy IBARRA HEMATOLOGY Final Res ult [facility] [address] [place] [address] * (ABNORMAL) RED CELL MORPHOLOGY (10/15/2025 3:19 PM CORONER'S JUROR) Only the most recent of2 resultswithin the time period is included. ACANTHOCYTES Few 10/15/2025 6:40 PM CORONER'S JUROR [facility] ELLIPTOCYTES Few 10/15/2025 6:40 PM CORONER[employer]S JUROR [facility] POLYCHROMASIA Slight 10/15/2025 6:40 PM CORONER[employer]S JUROR [facility] TEARDROP CELLS Few 10/15/2025 6:40 PM CORONER[employer]S JUROR [facility] RBC COMMENT Present(A) RBC morphology appears normal, RBC morphology within normal limits for newborns. 10/15/2025 6:40 PM CORONER'S JUROR [facility] Blood BLOOD SPECIMEN / Unknown [facility] Collect / Unknown 10/15/2025 3:19 PM CORONER'S JUROR 10/15/2025 3:19 PM CORONER'S JUROR Kathy IBARRA HEMATOLOGY Final Res ult Performing Organization Address City/[facility]/ZIP Co de Phone Number [facility] [address] [place] [address] * (ABNORMAL) PLATELET ESTIMATE (10/15/2025 3:19 PM CORONER'S JUROR) Only the most recent of2 resultswithin the time period is included. [facility] PLATELET ESTIMATE Increased (A) Adequate, No estimate 10/15/2025 6:40 PM CORONER'S JUROR [facility] Blood BLOOD SPECIMEN / Unknown [facility] Collect / Unknown 10/15/2025 3:19 PM CORONER'S JUROR 10/15/2025 3:19 PM CORONER'S JUROR Kathy IBARRA HEMATOLOGY Final Res ult [facility] [address] [place] [address] * URINE ALBUMIN TO CREATININE RATIO, RANDOM (09/24/2025 8:19 AM CORONER'S JUROR) Only the most recent of2 resultswithin the time period is included. [facility] ALB RAND URINE 28.2 mg/L 09/24/2025 4:33 PM CORONER'S JUROR [facility] CREATININE,URIN E 2.41 g/L 09/24/2025 4:33 PM [facility] ALBUMIN TO CREATININE RATIO,RAND UR 11.7 <30.0 mg/g creat 09/24/2025 4:33 PM [facility] Urine URINE SPECIMEN / Unknown Non-Blood / Unknown 09/24/2025 8:19 AM CORONER'S JUROR 09/24/2025 8:19 AM CORONER'S JUROR Narrative [facility] - 09/24/2025 4:33 PM CORONER'S JUROR If Albumin to Creatinine Ratio is elevated, consider the following: Elevations seen with incipient nephropathy associated with diabetes mellitus or hypertension. Stress, exercise,hematuria, and urinary tract infection may also produce elevated results. If clinically indicated, confirm with 24 Hour Albumin to Creatinine Ratio. us Kathy IBARRA URINE Final Res ult [facility] [address] [place] [address], [place] * BASIC METABOLIC PANEL (09/24/2025 8:19 AM CORONER'S JUROR) Only the most recent of3 resultswithin the time period is included. SODIUM 138 135 - 146 mmol/L 09/25/2025 3:56 AM CORONER'S JUROR [facility] POTASSIUM 4.7 3.5 - 5.3 mmol/L 09/25/2025 3:56 AM CORONER'S JUROR [facility] CARBON DIOXIDE 26 20 - 32 mmol/L 09/25/2025 3:56 AM CORONER'S JUROR [facility] GLUCOSE 93 65 - 99 mg/dL 09/25/2025 3:56 AM CORONER[employer]S JUROR [facility] Comment: Fasting reference interval CALCIUM 9.2 8.6 - 10.2 mg/dL 09/25/2025 3:56 AM CORONER'S JUROR [facility] CREATININE 0.80 0.50 - 0.96 mg/dL 09/25/2025 3:56 AM CORONER'S JUROR [facility] BUN/CREATININE RATIO SEE NOTE: 6 - 22 (calc) 09/25/2025 3:56 AM CORONER[employer]S JUROR [facility] Comment: Not Reported: BUN and Creatinine are within reference range. EGFR 102 > OR = 60 mL/min/1. 73m2 09/25/2025 3:56 AM CORONER'S JUROR [facility] UREA NITROGEN (BUN) 10 7 - 25 mg/dL 09/25/2025 3:56 AM CORONER'S JUROR [facility] ELECTROLYTE BALANCE 7 7 - 17 mmol/L (calc) 09/25/2025 3:56 AM CORONER'S JUROR [facility] CHLORIDE 105 98 - 110 mmol/L 09/25/2025 3:56 AM CORONER'S JUROR [facility] Blood BLOOD SPECIMEN / Unknown [facility] / Unknown 09/24/2025 8:19 AM CORONER'S JUROR 09/24/2025 8:19 AM CORONER'S JUROR Kathy IBARRA CHEMISTRY Final Res ult [facility] [address] [id number], * (ABNORMAL) POTASSIUM (09/20/2025 8:03 AM CDT) POTASSIUM 3.4(L) 3.5 - 5.1 mmol/L 09/20/2025 8:22 AM CDT [facility] Blood BLOOD SPECIMEN / Unknown Venipuncture / Unknown 09/20/2025 8:03 AM CDT 09/20/2025 8:08 AM CDT Kervin Ozuna MD CHEMISTRY Mitra l Result [facility] [address] [place] [address] * (ABNORMAL) GLUCOSE METER (09/20/2025 7:48 AM CDT) GLUCOSE METER 120(H) 65 - 100 mg/dL 09/20/2025 7:50 AM CDT [facility] Blood BLOOD SPECIMEN / Unknown 09/20/2025 7:48 AM CDT 09/20/2025 7:50 AM CDT Susi Enamorado Hospitalist CHEMISTRY Final Result Performing Organization Address City/[facility]/ZIP Co de Phone Number [facility] [address] [place] [address] * TRANSFUSE RBC (NURSE COMMUNICATION ORDER) (09/20/2025 4:42 AM CDT) Blood BLOOD SPECIMEN / Unknown us Rodney Kulkarni MD NURSING BLOOD BANK Final Result * (ABNORMAL) IRON PLUS IRON BINDING CAP (09/20/2025 4:40 AM CDT) IRON 14(L) 37 - 145 ug/dL 09/20/2025 12:32 PM CDT [facility] UIBC (UNSATURATED) 325 112 - 347 ug/dL 09/20/2025 12:32 PM CDT [facility] IRON BINDING CAPACITY 339 250 - 400 ug/dL 09/20/2025 12:32 PM CDT [facility] IRON,% SATURATION 4(L) 14 - 50 % 09/20/2025 12:32 PM CDT [facility] Blood BLOOD SPECIMEN / Unknown Venipuncture / Unknown 09/20/2025 4:40 AM CDT 09/20/2025 4:44 AM CDT us Callie Hernandez DO CHEMISTRY Final Result [facility] [address] [place] [address], * (ABNORMAL) Hemoglobin q 6 (09/20/2025 4:40 AM CDT) HEMOGLOBIN 7.4(L) 12.0 - 16.0 g/dL 09/20/2025 4:47 AM CDT [facility] MCV 72(L) 80 - 100 fL 09/20/2025 4:47 AM CDT [facility] Blood BLOOD SPECIMEN / Unknown Venipuncture / Unknown 09/20/2025 4:40 AM CDT 09/20/2025 4:44 AM CDT us Kervin Ozuna MD HEMATOLOGY Mitra l Result [facility] [address] [place] [address] * LD serum (ADD ON) (09/20/2025 4:40 AM CDT) Pathologist [facility] LD,TOTAL 160 135 - 214 IU/L 09/20/2025 7:35 AM CDT [facility] Blood BLOOD SPECIMEN / Unknown Venipuncture / Unknown 09/20/2025 4:40 AM CDT 09/20/2025 4:44 AM CDT us Kervin Ozuna MD CHEMISTRY Mitra l Result [facility] [address] [place] [address] * Reticulocyte count AM (09/20/2025 4:40 AM CDT) [facility] RETIC% 1.2 0.5 - 1.5 % 09/20/2025 12:34 PM CDT [facility] [employer] [facility] RETIC (ABSOLUTE) 0.04 0.03 - 0.08 mil/cu mm 09/20/2025 12:34 PM CDT [facility] Blood BLOOD SPECIMEN / Unknown Venipuncture / Unknown 09/20/2025 4:40 AM CDT 09/20/2025 4:44 AM CDT us Kervin Ozuna MD HEMATOLOGY Mitra l Result [facility] [address] [place] [address], * (ABNORMAL) Haptoglobin AM (09/20/2025 4:40 AM CDT) [facility] Haptoglobin 240(H) 30 - 200 mg/dL 09/20/2025 12:42 PM CDT [facility] Blood BLOOD SPECIMEN / Unknown Venipuncture / Unknown 09/20/2025 4:40 AM CDT 09/20/2025 4:44 AM CDT us Kervin Ozuna MD CHEMISTRY Mitra l Result Performing Organization Address [facility] Co de Phone Number [facility] [address] [address], [place] * (ABNORMAL) Ferritin AM (09/20/2025 4:40 AM CDT) FERRITIN 12.8(L) 15.0 - 150.0 ng/mL 09/20/2025 12:42 PM CDT [facility] Blood BLOOD SPECIMEN / Unknown Venipuncture / Unknown 09/20/2025 4:40 AM CDT 09/20/2025 4:44 AM CDT us Kervin Ozuna MD CHEMISTRY Mitra l Result Performing Organization Address [facility] Phone Number [facility] [address] [address], [place] * Vitamin B12 level AM (09/20/2025 4:40 AM CDT) VITAMIN B12 630 232 - 1,245 pg/mL 09/20/2025 12:41 PM CDT [facility] Blood BLOOD SPECIMEN / Unknown Venipuncture / Unknown 09/20/2025 4:40 AM CDT 09/20/2025 4:44 AM CDT Narrative [facility] - 09/20/2025 12:41 PM CDT Biotin supplements may cause clinically significant interference for this test assay. If interference is suspected, it is strongly recommended that biotin is discontinued for at least one week prior to retesting. Kervin Ozuna MD CHEMISTRY Mitra l Result Performing Organization Address [facility] Co de Phone Number [facility] [address] [address], [place] * US PELVIS COMPLETE TA AND TV (09/20/2025 2:46 AM CDT) Anatomical Region Laterality Modality Pelvis Ultrasound 09/20/2025 2:57 AM CDT Impressions 09/20/2025 2:57 AM CDT 1. Left ovarian dermoid and adjacent simple cyst. 2. Normal blood flow in the left ovary. 3. Nonvisualization of the right ovary. Dictated by Yahir Salcedo MD @ 09/20/2025 2:57:29 AM (Electronically Signed) Narrative 09/20/2025 2:57 AM CDT For Patients: As a result of the Cures Act, medical imaging exams and procedure reports are released immediately into your electronic medical record. You may view this report before your referring provider. If you have questions, please contact your health care provider. INDICATION: Pain/tenderness. TECHNIQUE: Ultrasound pelvis transabdominal and transvaginal for better assessment or to better visualize the endometrium. Real-time sonographic images with spectral and color Doppler imaging of the ovaries were obtained. COMPARISON: CT abdomen and pelvis 09/20/2025. FINDINGS: Uterus: 8.5 x 4.4 x 4.5 cm. Normal echotexture of the myometrium. No suspicious masses. Nabothian cysts. Endometrium: Endometrial thickness measures 14 mm. No sign of endometrial mass or fluid. Ovaries: Left ovary measures 7.9 x 4.7 x 3.3 cm. Right ovary is not visualized, obscured by bowel gas. Left ovarian dermoid measuring 3.5 x 3.2 x 2.7 cm. Adjacent left ovarian simple cyst measuring 3.8 x 5.1 x 5.2 cm. Normal arterial and venous blood flow is demonstrated in the left ovary. Cul-de-sac: No significant free fluid. Procedure Note Yahir Salcedo MD - 09/20/2025 For Patients: As a result of the Cures Act, medical imagingexams and procedure reports are released immediately into your electronicmedical record. You may view this report before your referring provider.If you have questions, please contact your health care provider. INDICATION: Pain/tenderness. TECHNIQUE: Ultrasound pelvis transabdominal and transvaginal for better assessment orto better visualize the endometrium. Real-time sonographic images withspectral and color Doppler imaging of the ovaries were obtained. COMPARISON: CT abdomen and pelvis 09/20/2025. FINDINGS: Uterus: 8.5 x 4.4 x 4.5 cm. Normal echotexture of the myometrium. Nosuspicious masses. Nabothian cysts. Endometrium: Endometrial thickness measures 14 mm. No sign of endometrialmass or fluid. Ovaries: Left ovary measures 7.9 x 4.7 x 3.3 cm. Right ovary is notvisualized, obscured by bowel gas. Left ovarian dermoid measuring 3.5 x3.2 x 2.7 cm. Adjacent left ovarian simple cyst measuring 3.8 x 5.1 x 5.2cm. Normal arterial and venous blood flow is demonstrated in the leftovary. Cul-de-sac: No significant free fluid. IMPRESSION: 1. Left ovarian dermoid and adjacent simple cyst. 2. Normal blood flow in the left ovary. 3. Nonvisualization of the right ovary. Dictated by Yahir Salcedo MD @ 09/20/2025 2:57:29 AM (Electronically Signed) Rodney Kulkarni MD Final Re sult * RBC W/O TYPE & SCREEN (09/20/2025 1:44 AM CDT) QUANTITY 1 09/20/2025 1:44 AM CDT [facility] BLOOD BANK Blood BLOOD SPECIMEN / Unknown 09/20/2025 1:04 AM CDT Rodney Kulkarni MD BLOOD BANK Final Re sult [facility] BLOOD BANK [address] [place] [address] * TYPE AND SCREEN ONLY (09/20/2025 1:05 AM CDT) ABORH A Rh Positive 09/20/2025 1:41 AM CDT [facility] BLOOD BANK ANTIBODY SCREEN Negative Negative 09/20/2025 1:41 AM CDT [facility] BLOOD BANK SPECIMEN EXPIRATION DATE/TIME 09/23/25 23:59 09/20/2025 1:41 AM CDT [facility] BLOOD BANK Blood BLOOD SPECIMEN / Unknown Venipuncture / Unknown 09/20/2025 1:05 AM CDT 09/20/2025 1:10 AM CDT us Rodney Kulkarni MD BLOOD BANK Final Re sult [facility] BLOOD BANK [address] [place] [address] * RED BLOOD CELLS EA UNIT (09/20/2025 1:05 AM CDT) CROSSMATCH Compatible Compatible [facility] BLOOD BANK PRODUCT BLOOD TYPE A Rh Positive [facility] BLOOD BANK PRODUCT ID NUMBER [id number] [facility] BLOOD BANK PRODUCT STATUS Transfused [facility] BLOOD BANK PRODUCT DESCRIPTION RBC -1 LR [facility] BLOOD BANK PRODUCT CODE [id number] [facility] BLOOD BANK ISSUE DATE/TIME 09/20/25 02:47 [facility] BLOOD BANK us Rodney Kulkarni MD BLOOD BANK Edited R esult - Final [facility] BLOOD BANK [address] [place] [address] * CT ABDOMEN PELVIS STONE PROTOCOL WO (09/20/2025 12:44 AM CDT) Anatomical Region Laterality Modality Abdomen, Pelvis, AORTA, LIVER, SPLEEN Computed Tomography 09/20/2025 12:5 3 AM CDT Impressions 09/20/2025 12:53 AM CDT 1. No urolithiasis or evidence of obstructive uropathy. 2. 4.8 cm left ovarian dermoid. 3. 4.3 cm additional cystic lesion in the left ovary, new or increased in size compared to the prior exam. Recommend pelvic ultrasound for further characterization. 4. Hepatic steatosis. Please note that all CT scans at this facility use dose modulation, iterative reconstruction, and/or weight-based dosing when appropriate to reduce radiation dose to as low as reasonably achievable. Dictated by Edwardo Mas MD @ 09/20/2025 12:53:22 AM (Electronically Signed) Narrative 09/20/2025 12:53 AM CDT For Patients: As a result of the Cures Act, medical imaging exams and procedure reports are released immediately into your electronic medical record. You may view this report before your referring provider. If you have questions, please contact your health care provider. INDICATION: Flank pain. TECHNIQUE: CT abdomen and pelvis without contrast. COMPARISON: CT abdomen and pelvis 11/07/2023. FINDINGS: Lower chest: Unremarkable. Liver: Diffuse fatty infiltration. Normal contour. No suspicious mass. Gallbladder and bile ducts: No stones or inflammation. No biliary dilatation. Pancreas: Unremarkable. No mass or inflammation. Spleen: Normal in size. No masses. Adrenal glands: Normal in size. No nodules. Kidneys: Normal in size. No suspicious masses, stones, or hydronephrosis. GI tract: Unremarkable. Normal in caliber. No sign of mass or inflammation. Normal appendix. Vasculature: Abdominal aorta is normal in caliber. Lymph nodes: Unchanged prominent, but not pathologically enlarged retroperitoneal lymph nodes. Peritoneum/Abdominal Wall: Unremarkable. No free air or significant free fluid. Pelvis: 4.8 cm left ovarian dermoid. 4.3 cm additional cystic lesion in the left ovary, new or increased in size compared to the prior exam. Bones: Unremarkable for age. Procedure Note Edwardo Mas MD - 09/20/2025 For Patients: As a result of the Cures Act, medical imagingexams and procedure reports are released immediately into your electronicmedical record. You may view this report before your referring provider.If you have questions, please contact your health care provider. INDICATION: Flank pain. TECHNIQUE: CT abdomen and pelvis without contrast. COMPARISON: CT abdomen and pelvis 11/07/2023. FINDINGS: Lower chest: Unremarkable. Liver: Diffuse fatty infiltration. Normal contour. No suspicious mass. Gallbladder and bile ducts: No stones or inflammation. No biliarydilatation. Pancreas: Unremarkable. No mass or inflammation. Spleen: Normal in size. No masses. Adrenal glands: Normal in size. No nodules. Kidneys: Normal in size. No suspicious masses, stones, or hydronephrosis. GI tract: Unremarkable. Normal in caliber. No sign of mass orinflammation. Normal appendix. Vasculature: Abdominal aorta is normal in caliber. Lymph nodes: Unchanged prominent, but not pathologically enlargedretroperitoneal lymph nodes. Peritoneum/Abdominal Wall: Unremarkable. No free air or significant freefluid. Pelvis: 4.8 cm left ovarian dermoid. 4.3 cm additional cystic lesion inthe left ovary, new or increased in size compared to the prior exam. Bones: Unremarkable for age. IMPRESSION: 1. No urolithiasis or evidence of obstructive uropathy. 2. 4.8 cm left ovarian dermoid. 3. 4.3 cm additional cystic lesion in the left ovary, new or increased insize compared to the prior exam. Recommend pelvic ultrasound for furthercharacterization. 4. Hepatic steatosis. Please note that all CT scans at this facility use dose modulation,iterative reconstruction, and/or weight-based dosing when appropriate toreduce radiation dose to as low as reasonably achievable. Dictated by Edwardo Mas MD @ 09/20/2025 12:53:22 AM (Electronically Signed) Rodney Kulkarni MD CT Final Re sult * (ABNORMAL) CBC W PLT NO DIFF (09/20/2025 12:31 AM CDT) WHITE BLOOD COUNT 9.8 4.5 - 11.0 thou/cu mm 09/20/2025 1:[address] [facility] RED BLOOD COUNT 3.41(L) 4.00 - 5.20 mil/cu mm 09/20/2025 1:[address] [facility] HEMOGLOBIN 6.5(LL) 12.0 - 16.0 g/dL 09/20/2025 1:[address] [facility] HEMATOCRIT 23.7(L) 33.0 - 51.0 % 09/20/2025 1:[address] [facility] MCV 70(L) 80 - 100 fL 09/20/2025 1:[address] [facility] MCH 19.1(L) 26.0 - 34.0 pg 09/20/2025 1:[address] [facility] MCHC 27.4(L) 32.0 - 36.0 g/dL 09/20/2025 1:[address] [facility] RDW 18.3(H) 11.5 - 15.5 % 09/20/2025 1:48 AM T [facility] PLATELET COUNT 528(H) 140 - 440 thou/cu mm 09/20/2025 1:48 AM T [facility] MPV 9.4 6.5 - 11.0 fL 09/20/2025 1:48 AM T [facility] Blood BLOOD SPECIMEN / Unknown Venipuncture / Unknown 09/20/2025 12:31 AM CDT 09/20/2025 12:36 AM CDT Rodney Kulkarni MD HEMATOLOGY Final Re sult Performing Organization Address City/[facility]/ZIP Co de Phone Number [facility] [address] [place] [address] * LIPASE (09/20/2025 12:31 AM CDT) LIPASE 19.7 13.0 - 60.0 IU/L 09/20/2025 12:56 AM T [facility] Blood BLOOD SPECIMEN / Unknown Venipuncture / Unknown 09/20/2025 12:31 AM CDT 09/20/2025 12:36 AM CDT Rodney Kulkarni MD CHEMISTRY Final Re sult Performing Organization Address City/[facility]/ZIP Co de Phone Number [facility] [address] [place] [address] * (ABNORMAL) HEPATIC FUNCTION PANEL (09/20/2025 12:31 AM CDT) ALBUMIN 3.9(L) 4.0 - 4.9 g/dL 09/20/2025 12:56 AM T [facility] PROTEIN,TOTAL 6.9 6.0 - 8.0 g/dL 09/20/2025 12:56 AM T [facility] BILIRUBIN,TOTAL 0.2 0.0 - 1.2 mg/dL 09/20/2025 12:56 AM CDT [facility] BILIRUBIN,DIRECT 0.1 0.0 - 0.2 mg/dL 09/20/2025 12:[address] [facility] BILIRUBIN,INDIRE CT 0.1(L) 0.2 - 0.8 mg/dL 09/20/2025 12:56 AM T [facility] ALK PHOSPHATASE 62 35 - 104 IU/L 09/20/2025 12:[address] [facility] ALT (SGPT) 10 10 - 35 IU/L 09/20/2025 12:56 AM T [facility] AST (SGOT) 15 10 - 35 IU/L 09/20/2025 12:56 AM T [facility] Blood BLOOD SPECIMEN / Unknown Venipuncture / Unknown 09/20/2025 12:31 AM CDT 09/20/2025 12:36 AM CDT Rodney Kulkarni MD CHEMISTRY Final Re sult [facility] [address] [place] [address] * (ABNORMAL) URINALYSIS MICROSCOPIC (09/20/2025 12:07 AM CDT) RBC >100(A) 0-2, None Seen /HPF 09/20/2025 12:[address] [facility] WBC 6-10(A) 0-2, 3-5, None Seen /HPF 09/20/2025 12:57 AM T [facility] BACTERIA Many(A) None Seen, Rare, Few Bacteria/H PF 09/20/2025 12:57 AM T [facility] EPITHELIAL CELLS Few None Seen, Few Epi/HPF 09/20/2025 12:57 AM T [facility] Urine URINE SPECIMEN / Unknown Non-Blood / Unknown 09/20/2025 12:07 AM CDT 09/20/2025 12:13 AM CDT Rodney Kulkarni MD URINE Final Re sult [facility] [address] [place] [address] * (ABNORMAL) UA W/ SEDIMENT EXAM REFLEXED PER CRITERIA (09/20/2025 12:[address] [facility]) COLOR Red(A) Yellow Color 09/20/2025 12:[address] [facility] CLARITY Cloudy(A) Clear Clarity 09/20/2025 12:[address] [facility] SPECIFIC GRAVITY,URINE 1.025 1.010, 1.015, 1.020, 1.025 09/20/2025 12:[address] [facility] PH,URINE Unable to interpret due to interfering substance(A) 6.0, 7.0, 8.0, 5.5, 6.5, 7.5, 8.5 09/20/2025 12:[address] [facility] UROBILINOGEN, QUALITATIVE Unable to interpret due to interfering substance(A) Normal EU/dl 09/20/2025 12:[address] [facility] PROTEIN, URINE Unable to interpret due to interfering substance(A) Negative mg/dL 09/20/2025 12:[address] [facility] GLUCOSE, URINE Unable to interpret due to interfering substance(A) Negative mg/dL 09/20/2025 12:[address] [facility] KETONES,URINE Unable to interpret due to interfering substance(A) Negative mg/dL 09/20/2025 12:[address] [facility] BILIRUBIN,URI NE Unable to interpret due to interfering substance(A) Negative 09/20/2025 12:[address] [facility] OCCULT BLOOD,URINE Unable to interpret due to interfering substance(A) Negative 09/20/2025 12:[address] [facility] NITRITE Unable to interpret due to interfering substance(A) Negative 09/20/2025 12:[address] [facility] LEUKOCYTE ESTERASE Unable to interpret due to interfering substance(A) Negative 09/20/2025 12:57 AM CDT [facility] Urine URINE SPECIMEN / Unknown Non-Blood / Unknown 09/20/2025 12:07 AM CDT 09/20/2025 12:13 AM CDT Rodney Kulkarni MD URINE Final Re sult [facility] [address] [place] [address] * URINE (09/20/2025 12:07 AM CDT) ,URIN E Negative Negative 09/20/2025 12:20 AM CDT [facility] Urine URINE SPECIMEN / Unknown Non-Blood / Unknown 09/20/2025 12:07 AM CDT 09/20/2025 12:13 AM CDT Rodney Kulkarni MD URINE Final Re sult [facility] [address] [place] [address] * HEMOGLOBIN A1C MONITORING (POCT) (09/18/2025 9:42 AM CDT) [facility] POC HEMOGLOBIN A1C 5.7 <6.0 % OF TOTAL HGB 09/18/2025 9:59 AM CDT [facility] Comment: Any point of care results exhibiting inconsistency with the patient's clinical status should be repeated using a different testing method. Blood BLOOD SPECIMEN / Unknown [facility] / Unknown 09/18/2025 9:42 AM CDT 09/18/2025 9:42 AM CDT Kathy IBARRA CHEMISTRY Final Res ult [facility] [address] [place] [address], [place] [phone] [facility] [address] [place] [address], * HPV HIGH RISK (03/27/2025 11:50 AM CDT) TYPE 16 Negative Negative 03/31/2025 7:00 AM CDT [facility] TYPE 18 Negative Negative 03/31/2025 7:00 AM CDT [facility] OTHER HIGH RISK TYPES Negative Negative 03/31/2025 7:00 AM CDT [facility] LABORATORY Other (Cervical) Non-Blood / Unknown 03/27/2025 11:50 AM CDT 03/28/2025 9:56 AM CDT Narrative [facility] - 03/31/2025 7:00 AM CDT HPV types 16, 18, 31, 33, 35, 39, 45, 51, 52, 56, 58, 59, 66 and 68 DNA were undetectable or below the pre-set threshold. Methodology: Khloe Salud 4800 HPV Test Kathy IBARRA MICROBIOLOGY Final Res ult [facility] [address] [place] [address], * ANTI HCV (08/20/2023 11:17 AM CDT) Pathologist [facility] HEPATITIS C ANTIBODY Non-Reacti ve Non-React che 08/21/2023 6:05 AM CDT [facility] Comment:Please note, per www .CDC.gov: If [...] Kathy IBARRA SEND OUTS Final Res ult [facility] [address] [place] [address], * ANTI HIV 1/2 (03/10/2017 10:45 AM CDT) HIV-1/HIV-2 ANTIBODY Non-Reacti ve Non-Reacti ve 03/10/2017 8:46 PM CDT [facility] Blood BLOOD SPECIMEN / Unknown Venipuncture / Unknown 03/10/2017 10:45 AM CDT 03/10/2017 10:50 AM CDT Narrative [facility] - 03/10/2017 8:46 PM CDT HIV-1 p24 and HIV-1/HIV-2 Ab not detected us Ji Persaud MD SEND OUTS Final R esult [facility] [address] [place] [address], from Last 3 Months or Most Recently Relevant to Health Maintenance [place] [address] [place] [address] CHOICE [facility] Member Subscriber Plan / Payer (Ef fective 2025-Present) Name:Cally Nicholas R Relation to Subscriber:Self Name:Cally Nicholas R Payer ID:Not on file Group ID:Not on file Type:Not on file Address: FOR [employer] [facility] [place] [address] ELIANE ESPARZA [facility] [employer] [id number] [address] [address] [place] [address] Advance Directives Documents on File Type Date Recorded Patient Outside Cutter Expl anation Healthcare Directive 09/20/2025 025 * Full Code (Latest Code Status on File) Date Activated Date Inactivated Comments 09/20/2025 5:08 AM 09/20/2025 1:18 PM Question Answer Comments Code Status Discussion: Reviewed Preferences * Full Code Date Activated Date Inactivated Comments 12/15/2024 7:52 [...] Comments Code Status Discussion: Discussed Care Teams Installment Account Checker Relationship Specialty Start Date End Date Kathy Wade PA [address] [facility] [address] PCP - General Physician Doubler Helper 06/22/23 Janeth Reyes, RN [address] [place], [place] [address] Lumber Mover 04/24/25
[2025-10-16 00:07] VITALS: BP 151/87; PULSE 90; RESP 18; TEMP 37.4; O2SAT 98
[2025-10-16 01:01] LABS: Hematocrit* 31.7 % (33.0-51.0); Hemoglobin* 9.1 gm/dL (12.0-16.0); Immature Granulocytes Pct Auto 0.1 %; Mean Corpuscular HGB Conc 29 gm/dL (32-36); Mean Corpuscular Hemoglobin 21 pg (26-34); Mean Corpuscular Volume 72 fL (80-100); RDW Coefficient of Variation % 23.0 % (11.5-15.5); Red Blood Count* 4.39 m/uL (4.00-5.20); White Blood Count* 12.24 K/uL (4.50-11.00)
[2025-10-16 01:04] LABS: Immature Granulocytes Abs Auto 0.00 K/uL (0.00-0.30); Lymphocytes Absolute Auto 3.60 K/uL (0.90-2.90); Slide Review Reflex No
[2025-10-16 01:07] LABS: Appearance Urine Cloudy (Clear)
[2025-10-16 01:14] LABS: Chloride* 106 mmol/L (96-114); Sodium* 136 mmol/L (135-149)
[2025-10-16 01:15] LABS: Potassium* 4.4 mmol/L (3.6-5.1)
[2025-10-16 01:17] LABS: Blood Urea Nitrogen* 11 mg/dL (5-24); Creatinine* 0.6 mg/dL (0.5-1.5); Est. Creatinine Clearance* 139.56; Estimated Glomerular Filt Rate 125 ml/min
[2025-10-16 01:18] LABS: Anion Gap 6 mEq/L (7-15); Carbon Dioxide* 24 mmol/L (20-32)
[2025-10-16 01:21] LABS: Ur HCG Qualitative* Negative (Negative)
[2025-10-16 01:31] LABS: Calcium* 9.2 mg/dL (8.4-10.6); Glucose* 125 mg/dL (60-115)
--- OUTSIDE RECORDS SUMMARY | 2025-10-16 01:36 | XMS_ITS | Clinical Summary ---
Author Organization [facility] Address [address] , [address] [place] [address] Phone Care Team Providers Care Cyber Workforce Developer And Manager Name Role Phone [facility] Unavailable Unava ilable Conditions or Problems Problem Name Problem Code Onset Date Status Entry Date Provider Comment Standard Description Annotate Ulnar neuropathy , right 649770704 (SNOMED CT) Active Cruz Castillo MD Ulnar neuropathy Median neuropathy , right 570540445 (SNOMED CT) Active Cruz Castillo MD Median [...] Procedures Code Procedure Name Date Entry Date CPT-25560 Nerve Conduction 9-10 studies CPT-46311 EMG with NCS (5+ muscles) - 1 limb 12/17 Vital Signs No information available. Immunizations No information available. Advance Directives No information available.
[2025-10-16 01:39] LABS: PCR FLU A Negative PCR FLU A (Negative); PCR FLU B Negative PCR FLU B (Negative); PCR RSV Negative PCR RSV (Negative); SARS PCR* Negative SARS-CoV-2 (Negative)
== END 2025-10-16 02:36 | disposition home or self-care (01) ==
PROVIDERS: Emergency Provider Emergency Medicine; PCP Student in an Organized Health Care Education/Training Program
DX: R42 Dizziness and giddiness (principal); D64.9 Anemia, unspecified; R10.23 Pelvic and perineal pain bilateral
CPT/HCPCS: 36415; 80048; 81001; 81025; 85025; 86850; 86900; 86901; 87086; 87631; 93005; 96361; 96374; 99283; 99284; J1885; J7030